=== PATIENT | female | born 1955 | race Caucasian/White ===

== ENCOUNTER → 2016-10-03 | Outpatient (CLI) | payer OTHER ==
[~2016-10-03] MED LIST: BUPR15TA OR; CALCCHW12 OR; CRANCAP4 PO; DEXALANT PO; FISH1000 OR; KRIL300C2 PO; MULTIVIT PO; VITA-121 PO
--- NOTE | 2016-10-03 15:40 | REPMRS ---
Patient History The patient states she had a clinical breast exam in 09/2016. Patient is postmenopausal and had first child at age 34. Family history of breast cancer in mother at age 64. Took unspecified hormones for 5 years. Digital Woman Screen Mammo: October 03, 2016 - Exam #: [id number] Bilateral CC and MLO view(s) were taken. Technologist: Gabbie Argueta, Technologist Prior study comparison: August 17, 2014, digital woman screen mammo performed at [facility]. May 24, 2013, bilateral bilat screen digital mammo, performed at [facility] ([facility] FINDINGS: The breast tissue is heterogeneously dense. This may lower the sensitivity of mammography. There has been no change in the appearance of the mammogram from the prior studies. There is a moderate amount of residual fibroglandular tissue which is fairly symmetric. There is no interval development of dominant mass, architectural distortion, or clustered microcalcification typical of malignancy. There are scattered, small, benign calcifications of doubtful clinical significance. No significant changes when compared with prior studies. ASSESSMENT: BI-RADS/ACR category 2 mammogram. Benign finding(s). Recommendation Routine screening mammogram in 1 year (for women over age 40). This mammogram was interpreted with the aid of an FDA-approved computer-aided dectection system. A. Negative x-ray reports should not delay biopsy if a dominant or clinically suspicious mass is present. B. Four to eight percent of cancers are not identified by mammography. C. Adenosis and dense breast may obscure an underlying neoplasm. Electronically Signed By: Popeye yLles MD 10/03/16 [id number]
== END ==
LOC: M WHC 13:13
PROVIDERS: ATTEND Nurse Practitioner Family
DX: Z12.31 Encounter for screening mammogram for malignant neoplasm of breast (principal)

== ENCOUNTER → 2016-10-03 | Outpatient (REF) | payer OTHER | LOC: M SFHCWAGY 14:21 | PROVIDERS: ATTEND Nurse Practitioner Family | DX: Z12.4 Encounter for screening for malignant neoplasm of cervix (principal) ==

== ENCOUNTER → 2017-09-26 | Outpatient (REF) | payer OTHER | LOC: M LAB REF 15:16 | DX: J11.1 Influenza due to unidentified influenza virus with other respiratory manifestations (principal) ==

== ENCOUNTER → 2017-10-13 | Outpatient (CLI) | payer OTHER | LOC: M WHC 13:48 | DX: Z12.31 Encounter for screening mammogram for malignant neoplasm of breast (principal); Z78.0 Asymptomatic menopausal state | CPT/HCPCS: 77067 ==

== ENCOUNTER → 2017-10-16 | Outpatient (CLI) | payer OTHER | LOC: M WHC 11:13 | DX: M81.0 Age-related osteoporosis without current pathological fracture (principal) ==

== ENCOUNTER → 2018-03-26 | Outpatient (REF) | payer OTHER | LOC: M LAB REF 13:45 | DX: R19.7 Diarrhea, unspecified (principal) | CPT/HCPCS: 87507 ==

== ENCOUNTER 2018-05-02 12:49 | Emergency (ER) | payer OTHER ==
[2018-05-02] MEDS: ONDANSETRON 4MG/2ML VIAL (J2405) IV (14:11)
[2018-05-02] MEDS: MORPHINE 2 MG/ML 1ML SYRINGE (J2270) IV (14:12)
[2018-05-02 14:49] LABS: BASO % 0.5 % (0.0-1.0); EOS # 0.1 10^3/uL (0.0-0.50); EOS % 0.6 % (0.0-3.0); HEMATOCRIT 37.4 % (36.0-47.0); HEMOGLOBIN 12.5 g/dl (12.0-15.5); IMMATURE GRANULOCYTE % 0.4 % (0-3.0); LYMPH # 0.8 10^3/uL (1.5-4.5); LYMPH % 9.9 % (24.0-44.0); MEAN CORPUSCULAR HEMOGLOBIN 30.7 pg (27.0-33.0); MEAN CORPUSCULAR HGB CONC 33.4 g/dl (32.0-36.5); MEAN CORPUSCULAR VOLUME 91.9 fl (80.0-96.0); MONO # 0.4 10^3/uL (0.0-0.8); MONO % 5.1 % (0.0-5.0); NEUTROPHILS % 83.5 % (36.0-66.0); PLATELET COUNT, AUTOMATED 264 10^3/uL (150-450); RED BLOOD COUNT 4.07 10^6/uL (4.00-5.40); RED CELL DISTRIBUTION WIDTH 12.1 % (11.5-14.5); WHITE BLOOD COUNT 8.3 10^3/uL (4.0-10.0)
[2018-05-02 15:23] LABS: ANION GAP 8 MEQ/L (8-16); BLOOD UREA NITROGEN 14 MG/DL (7-18); CARBON DIOXIDE LEVEL 26 MEQ/L (21-32); CHLORIDE LEVEL 109 MEQ/L (98-107); CREATININE FOR GFR 0.69 MG/DL (0.55-1.30); GLOMERULAR FILTRATION RATE > 60.0 (>45); GLUCOSE, FASTING 93 MG/DL (70-100); POTASSIUM SERUM 3.8 MEQ/L (3.5-5.1); SODIUM LEVEL 143 MEQ/L (136-145)
== END 2018-05-02 17:41 | disposition short-term general hospital (02) ==
LOC: M ED 12:49
DX: S32.402A Unspecified fracture of left acetabulum, initial encounter for closed fracture (principal); W07.XXXA Fall from chair, initial encounter; Y92.018 Other place in single-family (private) house as the place of occurrence of the external cause; K21.9 Gastro-esophageal reflux disease without esophagitis; F41.9 Anxiety disorder, unspecified; Z79.899 Other long term (current) drug therapy; Z87.891 Personal history of nicotine dependence
CPT/HCPCS: J2405

== ENCOUNTER → 2019-01-15 | Outpatient (REF) | payer OTHER ==
[~2019-01-15] MED LIST changes: +CIPR-249 PO; +FLAG500T PO; +LEXA1TAB2 PO
[2019-01-20 14:09] LABS: HPV HYBRID CAPTURE II Negative (Negative)
== END ==
LOC: M SFHCWAGY 12:54
PROVIDERS: ATTEND Nurse Practitioner Family
DX: Z12.4 Encounter for screening for malignant neoplasm of cervix (principal)

== ENCOUNTER → 2019-01-15 | Outpatient (CLI) | payer OTHER ==
--- NOTE | 2019-01-15 12:17 | REPMRS ---
Patient History The patient states she had a clinical breast exam in 01/2019. Family history of breast cancer at age 64 in mother. Took unspecified hormones for 5 years. 3D TOMOSYNTHESIS WAS PERFORMED. Digital Woman Screen Mammo: January 15, 2019 - Exam #: [id number] Bilateral CC and MLO view(s) were taken. Technologist: Mary Begum, Technologist Prior study comparison: October 13, 2017, digital woman screen mammo performed at [facility]. October 03, 2016, digital woman screen mammo performed at [facility]. FINDINGS: The breast tissue is heterogeneously dense. This may lower the sensitivity of mammography. There has been no change in the appearance of the mammogram from the prior studies. There is a moderate amount of residual fibroglandular tissue which is fairly symmetric. There is no interval development of dominant mass, areas of architectural distortion, or clustered microcalcification typical of malignancy. Assessment: BI-RADS/ACR category 1 mammogram. Negative Mammogram. Recommendation Routine screening mammogram in 1 year (for women over age 40). This mammogram was interpreted with the aid of an FDA-approved computer-aided dectection system. Electronically Signed By: David Alexander MD 01/15/19 [id number]
== END ==
LOC: M WHC 11:09
PROVIDERS: ATTEND Nurse Practitioner Family
DX: Z12.31 Encounter for screening mammogram for malignant neoplasm of breast (principal)

== ENCOUNTER 2019-04-09 09:45 | Day surgery (SDC) | payer OTHER ==
[~2019-04-09] VITALS: Ht 160 cm; Wt 43.5 kg
[~2019-04-09 09:45] MED LIST changes: +CALC600C3 PO; +CARA1TAB6 PO; +CRAN450T4 PO; +D 50CAP2 PO; +DEXI60CA2 PO; +WELLTAB38 PO
[2019-04-09] MEDS ORDERED: NS 1,000 ML IV ONE (10:30)
[2019-04-09] MEDS ORDERED: LIDOCAINE 2% INJ 100 MG/5 ML SDV (FOR ANES.) As Ordered ONE (12:11)
[2019-04-09] MEDS ORDERED: PROPOFOL 200 MG/20 ML VIAL As Ordered ONE ×2 (12:11→12:12)
--- NOTE | 2019-04-09 12:15 | ROOR ---
Patient Name: Hetal Prince Procedure Date: 04/09/2019 12:05 PM Date of : 1955 Age: 63 Room: [facility] Gender: Female Note Status: Finalized Procedure: Upper GI endoscopy Indications: Dyspepsia Providers: Meir CUEVA MD Referring MD: KHURRAM REILLY NP Requesting Provider: Medicines: Monitored Anesthesia Care Complications: No immediate complications. Procedure: Pre-Anesthesia Assessment: - The heart rate, respiratory rate, oxygen saturations, blood pressure, adequacy of pulmonary ventilation, and response to care were monitored throughout the procedure. The Endoscope was introduced through the mouth, and advanced to the second part of duodenum. The upper GI endoscopy was accomplished without difficulty. The patient tolerated the procedure well. Findings: The esophagus was normal. The stomach was normal. The examined duodenum was normal. Impression: - Normal esophagus. - Normal stomach. - Normal examined duodenum. - No specimens collected. Recommendation: - Continue present medications. Meir Cueva MD Meir CUEVA MD 04/09/2019 12:15:23 PM Electronically signed by Meir CUEVA MD Number of Addenda: 0 Note Initiated On: 04/09/2019 12:05 PM Estimated Blood Loss: Estimated blood loss: none.
--- NOTE | 2019-04-09 12:28 | ROOR ---
Patient Name: Hetal Prince Procedure Date: 04/09/2019 12:05 PM Date of : 1955 Age: 63 Room: [facility] Gender: Female Note Status: Finalized Procedure: Colonoscopy Indications: Screening for colorectal malignant neoplasm Providers: Meir CUEVA MD Referring MD: KHURRAM REILLY NP Requesting Provider: Medicines: Monitored Anesthesia Care Complications: No immediate complications. Procedure: Pre-Anesthesia Assessment: - The heart rate, respiratory rate, oxygen saturations, blood pressure, adequacy of pulmonary ventilation, and response to care were monitored throughout the procedure. The Colonoscope was introduced through the anus and advanced to the cecum, identified by appendiceal orifice and ileocecal valve. The colonoscopy was performed without difficulty. The patient tolerated the procedure well. The quality of the bowel preparation was good. Findings: The perianal and digital rectal examinations were normal. Small Internal Hemorrhoids. The exam was otherwise without abnormality on direct and retroflexion views. Impression: - Small Internal Hemorrhoids. - The examination was otherwise normal on direct and retroflexion views. - No specimens collected. Recommendation: - Repeat colonoscopy in 10 years for screening purposes. Meir Cueva MD Meir CUEVA MD 04/09/2019 12:28:13 PM Electronically signed by Meir CUEVA MD Number of Addenda: 0 Note Initiated On: 04/09/2019 12:05 PM Estimated Blood Loss: Estimated blood loss: none.
[2019-04-09 13:10] VITALS: BP 119/57
== END 2019-04-09 13:12 | disposition home or self-care (01) ==
LOC: M OPP 09:45
PROVIDERS: ATTEND Internal Medicine Gastroenterology
DX: Z12.11 Encounter for screening for malignant neoplasm of colon (principal); R10.13 Epigastric pain; K64.8 Other hemorrhoids; E78.00 Pure hypercholesterolemia, unspecified; K21.9 Gastro-esophageal reflux disease without esophagitis; F32.9 Major depressive disorder, single episode, unspecified; M81.0 Age-related osteoporosis without current pathological fracture; Z88.1 Allergy status to other antibiotic agents; Z88.8 Allergy status to other drugs, medicaments and biological substances; Z79.899 Other long term (current) drug therapy

== ENCOUNTER → 2019-05-18 | Outpatient (CLI) | payer OTHER ==
[2019-05-18 10:11] LABS: BASO # 0.1 10^3/uL (0.0-0.2); BASO % 1.3 % (0.0-1.0); EOS # 0.1 10^3/uL (0.0-0.5); EOS % 2.9 % (0.0-3.0); HEMOGLOBIN 13.6 g/dl (12.0-15.5); LYMPH # 1.4 10^3/uL (1.5-5.0); LYMPH % 30.8 % (24.0-44.0); MEAN CORPUSCULAR HGB CONC 32.4 g/dl (32.0-36.5); MEAN CORPUSCULAR VOLUME 95.7 fl (80.0-96.0); MONO # 0.6 10^3/uL (0.0-0.8); MONO % 12.4 % (0.0-5.0); NEUTROPHILS # 2.3 10^3/uL (1.5-8.5); NEUTROPHILS % 52.4 % (36.0-66.0); PLATELET COUNT, AUTOMATED 280 10^3/uL (150-450); RED BLOOD COUNT 4.39 10^6/uL (4.00-5.40); WHITE BLOOD COUNT 4.5 10^3/uL (4.0-10.0)
== END ==
LOC: M LAB 09:32
PROVIDERS: ATTEND Physician Assistant Medical
DX: K62.5 Hemorrhage of anus and rectum (principal)

== ENCOUNTER → 2019-06-04 | Outpatient (CLI) | payer OTHER ==
[~2019-06-04] MED LIST changes: +E-Z-PAQUE 96% w/w SUSP 176GM BTL As Ordered ONE
--- NOTE | 2019-06-05 17:51 | REP ---
Examination Requested: SBFT Reason For Exam: hemorrhage of anus and rectum Small Bowel Follow Through The procedure was performed by TICO Cardozo, under the direct supervision of Dr. Alexander. The images were reviewed with Dr. Alexander. The terminal operator film shows no organomegaly or pathological masses. The intestinal gas pattern appears normal. The barium was administered and the barium column was followed through the small bowel to the level of the terminal ileum. Small bowel transit time was approximately 80 minutes. During fluoroscopy gentle palpation shows all loops are freely mobile and pliable. There are no fixed or angulated loops. The small bowel mucosal pattern is normal in course and caliber. There is no transition to suggest a partial small-bowel obstruction. Spot filming of the terminal ileum shows it to be unremarkable. Impression: 1. Unremarkable small bowel follow-through 0.6 minutes of fluoroscopy time was utilized for this procedure. Some fluoroscopic images are performed with last image hold technology. These images require no additional radiation. Reviewed by TICO Darby 06/04/2019 04:21 P Electronically Signed by David Alexander MD 06/05/2019 05:41 P
== END ==
LOC: M RAD 07:19
PROVIDERS: ATTEND Physician Assistant Medical
DX: K62.5 Hemorrhage of anus and rectum (principal); R19.8 Other specified symptoms and signs involving the digestive system and abdomen; R63.4 Abnormal weight loss

== ENCOUNTER → 2020-01-18 | Outpatient (CLI) | payer OTHER ==
[~2020-01-18] MED LIST changes: -E-Z-PAQUE 96% w/w SUSP 176GM BTL As Ordered ONE
--- NOTE | 2020-01-18 12:34 | REPMRS ---
Patient History The patient states she had a clinical breast exam in January 2020. Family history of breast cancer at age 64 in mother. Took unspecified hormones for 5 years. 3D TOMOSYNTHESIS WAS PERFORMED. The Nilsa Monson lifetime risk for breast cancer is 16.7%. TRISHA Mancia Digital Woman Screen Mammo: January 18, 2020 - Exam #: [id number] Bilateral CC and MLO view(s) were taken. Technologist: Nora Stover, Technologist Prior study comparison: January 15, 2019, bilateral digital woman screen mammo performed at [facility]. October 13, 2017, digital woman screen mammo performed at [facility]. FINDINGS: The breast tissue is heterogeneously dense. This may lower the sensitivity of mammography. There has been no change in the appearance of the mammogram from the prior studies. There is a moderate amount of residual fibroglandular tissue which is fairly symmetric. There is no interval development of dominant mass, areas of architectural distortion, or clustered microcalcification typical of malignancy. Assessment: BI-RADS/ACR category 1 mammogram. Negative Mammogram. Recommendation Routine screening mammogram in 1 year (for women over age 40). This mammogram was interpreted with the aid of an FDA-approved computer-aided dectection system. Electronically Signed By: David Alexander MD 01/18/20 [id number]
--- NOTE | 2020-01-26 15:17 | DEXA ---
AP SPINE L1 - L4 0.829 -3.0 -1.6 LT FEMUR TOTAL 0.752 -2.0 -1.0 LT NECK 0.759 -2.0 -0.7 RT FEMUR TOTAL 0.744 -2.1 -1.0 RT NECK 0.739 -2.2 -0.8 TOTAL BODY TOTAL OTHER COMMENTS: There is low bone density of the hips. There is osteoporosis of the spine. The increased density of the spine does represent a significant change. The increased density of the left hip does represent a significant change. The increased density of the right hip does represent a significant change. The density of the spine has increased 22.6% since the initial exam on 02/23/2010. The increased 7.2% since the most recent exam on 10/16/2017. The density of the left hip has increased 12.1% since the initial exam on 02/23/2010. The density of the left hip has increased 5.8% since the most recent exam on 10/16/2017. The density of the right hip has increased 5.4% since the initial exam on 02/23/2010. The density of the right hip has increased 3.6% since most recent exam on 10/16/2017. FOLLOW-UP: Recommendation for the next bone density exam: 2 years. DEDE
== END ==
LOC: M WHC 11:09
PROVIDERS: ATTEND Nurse Practitioner Family
DX: Z12.31 Encounter for screening mammogram for malignant neoplasm of breast (principal); M81.0 Age-related osteoporosis without current pathological fracture; Z80.3 Family history of malignant neoplasm of breast; M85.851 Other specified disorders of bone density and structure, right thigh; M85.852 Other specified disorders of bone density and structure, left thigh

== ENCOUNTER → 2021-03-19 | Outpatient (CLI) | payer OTHER ==
[~2021-03-19] MED LIST changes: +ACET1TAB55 PO; +AZIT-12 PO; +D-50TAB PO; +FEXO-5 PO; +FLUTISP NARES; +VITA250T4 PO; +VITMTA PO; +ZINC220CA PO; +ZOFR4TAB16 PO
[2021-03-19 13:16] LABS: HEMATOCRIT 39.4 % (36.0-47.0); HEMOGLOBIN 12.6 g/dl (12.0-15.5); MEAN CORPUSCULAR HEMOGLOBIN 31.1 pg (27.0-33.0); MEAN CORPUSCULAR VOLUME 97.3 fl (80.0-96.0); PLATELET COUNT, AUTOMATED 252 10^3/uL (150-450); RED BLOOD COUNT 4.05 10^6/uL (4.00-5.40)
[2021-03-19 13:28] LABS: HEMOGLOBIN A1c 5.4 %
[2021-03-19 13:58] LABS: ALT/SGPT 31 U/L (12-78); BILIRUBIN,TOTAL 0.3 MG/DL (0.2-1.0); BLOOD UREA NITROGEN 16 MG/DL (7-18); CALCIUM LEVEL 9.2 MG/DL (8.8-10.2); CARBON DIOXIDE LEVEL 30 MEQ/L (21-32); CHLORIDE LEVEL 107 MEQ/L (98-107); CHOLESTEROL LEVEL 239 MG/DL (<200); CHOLESTEROL RISK RATIO 3.621 (<5); CREATININE FOR GFR 0.72 MG/DL (0.55-1.30); GLOMERULAR FILTRATION RATE > 60.0 (>45); GLUCOSE, FASTING 86 MG/DL (70-100); HDL CHOLESTEROL 66 MG/DL (>40); LDL CHOLESTEROL 145 MG/DL (<100); NON-HDL-C 173 MG/DL; POTASSIUM SERUM 4.5 MEQ/L (3.5-5.1); SODIUM LEVEL 141 MEQ/L (136-145); TOTAL 25(OH) VITAMIN D 68.4 NG/ML (30.0-100.0); TOTAL PROTEIN 6.7 GM/DL (6.4-8.2); TRIGLYCERIDES LEVEL 140 MG/DL (<150)
== END ==
LOC: M WUC 08:17
PROVIDERS: ATTEND Nurse Practitioner Adult Health
DX: E55.9 Vitamin D deficiency, unspecified (principal); Z76.89 Persons encountering health services in other specified circumstances; Z13.220 Encounter for screening for lipoid disorders; Z13.29 Encounter for screening for other suspected endocrine disorder; Z83.3 Family history of diabetes mellitus

== ENCOUNTER → 2021-05-02 | Outpatient (REF) | payer OTHER ==
[~2021-05-02] MED LIST changes: -ACET1TAB55 PO; -AZIT-12 PO; -D-50TAB PO; -FEXO-5 PO; -FLUTISP NARES; -VITA250T4 PO; -VITMTA PO; -ZINC220CA PO; -ZOFR4TAB16 PO
== END ==
LOC: M SFHCWAGY 19:04
PROVIDERS: ATTEND Nurse Practitioner Women's Health
DX: Z12.4 Encounter for screening for malignant neoplasm of cervix (principal)

== ENCOUNTER → 2021-05-02 | Outpatient (CLI) | payer OTHER ==
--- NOTE | 2021-05-02 13:17 | REPMRS ---
Patient History The patient states she had a clinical breast exam in April 2021. Family history of breast cancer at age 64 in mother. Took unspecified hormones for 5 years. Patient states no breast complaints today. Patient has signed MRS History Sheet. Digital Woman Screen Mammo: May 02, 2021 - Exam #: [id number] Bilateral CC and MLO view(s) were taken. Technologist: Nora Stover, Technologist Prior study comparison: January 18, 2020, bilateral digital woman screen mammo performed at [facility]. January 15, 2019, bilateral digital woman screen mammo performed at [facility]. FINDINGS: The breast tissue is heterogeneously dense. This may lower the sensitivity of mammography. Screening. Digital screening (2D) mammography was performed bilaterally in the CC and MLO projections. Additionally, breast tomosynthesis (3D mammography) was performed bilaterally in the CC and MLO projections. Todays exam was compared to the prior exam/exams. By history, the patient has no complaints of a palpable breast abnormality or other significant breast complaints. The breasts are unchanged in size and shape. There are no slade-soft tissue densities or spiculated masses. There is no internal architectural distortion. There are no suspicious slade-calcific clusters. Skin thickening or nipple retraction is not present. The Volpara volumetric breast density category is C, the breasts are heterogenously dense which may obscure small masses. IMPRESSION: BI-RADS Category 2- Benign Findings. There is no evidence of malignant alteration of the breasts. Followup examination recommended in one year. This mammogram was read with the assistance of [facility],an FDA approved computer aided detection system for mammography. The lifetime Tyrer-Cuzick score is 16.1% Negative x-ray reports should not delay surgical consultation if a dominant or clinically suspicious mass is present. Not all breast cancers can be identified by mammography. Therefore, we recommend that you continue to perform regular breast self-examination and physical examination and then promptly contact your physician of any concerns or changes. Due to the density of the breasts, MRI/whole breast screening ultrasound is warranted. Adenosis and dense breasts may obscure an underlying neoplasm. No significant changes when compared with prior studies. Assessment: BI-RADS/ACR category 2 mammogram. Benign Findings. Recommendation Routine screening mammogram of both breasts in 1 year. Electronically Signed By: Semaj Mckeon MD 05/02/21 [id number]
== END ==
LOC: M WHC 11:52
PROVIDERS: ATTEND Nurse Practitioner Women's Health
DX: Z12.31 Encounter for screening mammogram for malignant neoplasm of breast (principal); Z80.3 Family history of malignant neoplasm of breast

== ENCOUNTER 2021-05-25 10:54 | Observation (INO) | payer OTHER ==
[~2021-05-25] VITALS: Ht 160 cm; Wt 40.0 kg
--- OUTSIDE RECORDS SUMMARY | 2021-05-25 11:03 | CCD ---
Author Author [facility] Organization [facility] Address Unknown Phone Unavailable Care Team Providers Care Materials Planner/Production Planner Name Role Phone Helen Hensley MD Unavailable Unavailable Helen Hensley MD Unavailable Unavailable Helen Hensley MD Unavailable Unavailable Helen Hensley MD Unavailable Unavailable Helen Hensley MD Unavailable Unavailable Helen Hensley MD Unavailable Unavailable Helen Hensley MD Unavailable Unavailable Helen Hensley MD Unavailable Unavailable Helen Hensley MD Unavailable Unavailable Helen Hensley MD Unavailable Unavailable Helen Hensley MD Unavailable Unavailable Helen Hensley MD Unavailable Unavailable Helen Hensley MD Unavailable Unavailable Helen Hensley MD Unavailable Unavailable Helen Hensley MD Unavailable Unavailable Helen Hensley MD Unavailable Unavailable Helen Hensley MD Unavailable Unavailable Helen Hensley MD Unavailable Unavailable Helen Hensley MD Unavailable Unavailable Helen Hensley MD Unavailable Unavailable Helen Hensley MD Unavailable Unavailable Helen Hensley MD Unavailable Unavailable Helen Hensley MD Unavailable Unavailable Helen Hensley MD Unavailable Unavailable Helen Hensley MD Unavailable Unavailable KELLY, J Harriett ANP Unavailable Unavailable KELLY, J Harriett ANP Unavailable Unavailable KELLY, J Harriett ANP Unavailable Unavailable KELLY, J Harriett ANP Unavailable Unavailable KELLY, J Harriett ANP Unavailable Unavailable KELLY, J Harriett ANP Unavailable Unavailable KELLY, J Harriett ANP Unavailable Unavailable KELLY, J Harriett ANP Unavailable Unavailable KELLY, J Harriett ANP Unavailable Unavailable KELLY, J Harriett ANP Unavailable Unavailable KELLY, J Harriett ANP Unavailable Unavailable KELLY, J Harriett ANP Unavailable Unavailable KELLY, J Harritet ANP Unavailable Unavailable KELLY, J Harriett ANP Unavailable Unavailable KELLY, J Harriett ANP Unavailable Unavailable KELLY, J Harriett ANP Unavailable Unavailable KELLY, J Harriett ANP Unavailable Unavailable KELLY, J Harriett ANP Unavailable Unavailable KELLY, J Harriett ANP Unavailable Unavailable KELLY, J Harriett ANP Unavailable Unavailable KELLY, J Harriett ANP Unavailable Unavailable KELLY, J Harriett ANP Unavailable Unavailable KELLY, J Harriett ANP Unavailable Unavailable KELLY, J Harriett ANP Unavailable Unavailable KELLY, J Harriett ANP Unavailable Unavailable KELLY, J Harriett ANP Unavailable Unavailable KELLY, J Harriett ANP Unavailable Unavailable KELLY, J Harriett ANP Unavailable Unavailable KELLY, J Harriett ANP Unavailable Unavailable KELLY, J Harriett ANP Unavailable Unavailable KELLY, J Harriett ANP Unavailable Unavailable KELLY, J Harriett ANP Unavailable Unavailable KELLY, J Harriett ANP Unavailable Unavailable KELLY, J Harriett ANP Unavailable Unavailable KELLY, J Harriett ANP Unavailable Unavailable KELLY, J Harriett ANP Unavailable Unavailable KELLY, J Harriett ANP Unavailable Unavailable KELLY, J Harriett ANP Unavailable Unavailable KELLY, J Hrariett ANP Unavailable Unavailable KELLY, J Harriett ANP Unavailable Unavailable KELLY, J Harriett ANP Unavailable Unavailable KELLY, J Harriett ANP Unavailable Unavailable KELYL, J Harriett ANP Unavailable Unavailable KELLY, J Harriett ANP Unavailable Unavailable KELLY, J Harriett ANP Unavailable Unavailable KELLY, J Harriett ANP Unavailable Unavailable KELLY, J Harriett ANP Unavailable Unavailable KELLY, J Harriett ANP Unavailable Unavailable KELLY, J Harriett ANP Unavailable Unavailable KELLY, J Harriett ANP Unavailable Unavailable KELLY, J Harriett ANP Unavailable Unavailable KELLY, J Harriett ANP Unavailable Unavailable KELLY, J Harriett ANP Unavailable Unavailable KELLY, J Harriett ANP Unavailable Unavailable KELLY, J Harriett ANP Unavailable Unavailable KELLY, J Harriett ANP Unavailable Unavailable KELLY, J Harriett ANP Unavailable Unavailable KELLY, J Harriett ANP Unavailable Unavailable KELLY, J Harriett ANP Unavailable Unavailable KELLY, J Harriett ANP Unavailable Unavailable KELLY, J Harriett ANP Unavailable Unavailable KELLY, J Harriett ANP Unavailable Unavailable KELLY, J Harriett ANP Unavailable Unavailable KELLY, J Harriett ANP Unavailable Unavailable Re-disclosure Warning The records that you are about to access may contain information from federally-assisted alcohol or drug abuse programs. If such information is present, then the following federally mandated warning applies: This information has been disclosed to you from records protected by federal confidentiality rules (42 CFR part 2). The federal rules prohibit you from making any further disclosure of this information unless further disclosure is expressly permitted by the written consent of the person to whom it pertains or as otherwise permitted by 42 CFR part 2. A general authorization for the release of medical or other information is NOT sufficient for this purpose. The Federal rules restrict any use of the information to criminally investigate or prosecute any alcohol or drug abuse patient.The records that you are about to access may contain highly sensitive health information, the redisclosure of which is protected by Article 27-F of the [facility] Public Health law. If you continue you may have access to information: Regarding HIV / AIDS; Provided by facilities licensed or operated by the [facility] Office of Mental Health; or Provided by the [facility] Office for People With Developmental Disabilities. If such information is present, then the following [facility] mandated warning applies: This information has been disclosed to you from confidential records which are protected by state law. State law prohibits you from making any further disclosure of this information without the specific written consent of the person to whom it pertains, or as otherwise permitted by law. Any unauthorized further disclosure in violation of state law may result in a fine or detention sentence or both. A general authorization for the release of medical or other information is NOT sufficient authorization for further disc losure. Family History Family Member Name Family Member Gender Family Member Status Date o f Status Description Data Source(s) Unknown Unknown Problem [facility] ([facility]) Unknown Unknown Problem [facility] ([facility]) Encounters Encounter Providers Location Date Indications Data Source(s ) Unknown [address] [facility] [place] [address] 05/24/2021 12:00:00 AM EDT eCW1 ([facility]) Unknown [address] [facility] [place] [address] 05/22/2021 12:00:00 AM EDT eCW1 ([facility]) Outpatient Attender: Rody Paulino 10:21:04 AM EDT - 05/21/2021 01:02:12 PM EDT [facility] ([facility]) Outpatient [address] [facility] [place] [address] 05/02/2021 12:00:00 AM EDT eCW1 ([facility]) Outpatient [address] [facility] [place] [address] 02/22/2021 12:00:00 AM EDT eCW1 ([facility]) Outpatient Attender: Harriett Borrego 04/2020 10:15:00 AM EST MED[facility] ([facility] ) Medications Medication Brand Name Start Date Product Form Dose Route Admi nistrative Instructions Pharmacy Instructions Status Indications Reaction Description Data Source(s) Azithromycin 250 MG Oral Tablet [Zithromax] Zithromax 250 MG Zithromax 250 MG 05/22/2021 12:00:00 AM EDT active Zithromax 250 MG eCW1 ([facility]) Azithromycin 250 MG Oral Tablet [Zithromax] Zithromax 250 MG Zithromax 250 MG 05/22/2021 12:00:00 AM EDT active Zithromax 250 MG eCW1 ([facility]) Insurance Providers Payer name Policy type / Coverage type Policy ID Covered green party ID Covered green party's relationship to arguelles Policy Arguelles Plan Information [employer] CLAIM ADMIN WORK COMP [id number] SP [id number] [employer] CLAIM ADMIN WORK COMP [id number] [id number] [id number] [employer] [id number] [facility] [id number] [employer] [id number] [facility] [id number] [facility] [id number] [facility] [id number] [facility] [id number] SP [id number] [employer] Ppo Commercial [id number] Family Dependent [id number] [employer]/Umr (Old) Medigap Part B [id number] Family Dependent [id number] [employer] (Old) Medigap Part B [id number] Family Dependent [id number] Umr [employer] P[employer] Commercial [id number] Family Dependent [id number] Umr [employer] P[employer] Commercial [id number] Family Dependent [id number] [employer] (Old) Medigap Part B [id number] Family Dependent [id number] [employer] Ppo Commercial [id number] Family Dependent [employer] (Old) Medigap Part B [id number] Family Dependent [id number] [employer] (Old) Medigap Part B [id number] [id number] Family Dependent [id number] [employer] P[employer] Commercial [id number] Family Dependent [id number] [employer] P[employer] Commercial [id number] Family Dependent [id number] [employer] Workers Compensation [id number] Self [employer] Workers Compensation [id number] Self [id number] UMR U [id number] Spouse [id number] r Care Management [id number] 1 [id number] Umr ([employer]) Commercial [id number] Family Dependent [id number] [facility] [employer] [id number] Self [id number] ANSI-Commercial [id number] [employer] [id number] HU2 [id number] ANSI-Commercial [id number] UMR [facility] [id number] HU2 [id number] [employer] CLAIM ADMIN WORK O [id number] S [id number] UMR [facility] [id number] HU2 [id number] Umr Commercial [id number] Family Dependent [id number] ANSI-Commercial [id number] [employer] Medigap Part B [id number] Self [employer] Medigap Part B [id number] Self [id number] [facility] O [id number] S [id number] UMR O [id number] S [id number] UMR [facility] [id number] HU2 [id number] [employer] Commercial [id number] Family Dependent [employer] PPO O [id number] S [id number] [employer]-O/P [id number] 01 [id number] R [facility] HU2 c [id number] [employer] [id number] 2 [id number] ANSI-Commercial [id number] [employer] PPO O [id number] P [id number] Problems, Conditions, and Diagnoses Code Display Name Description Problem Type Effective Dates Data Source(s) M81.0 [id number] Age-related osteoporosis without current pathological fracture Problem 05/02/2021 12:00:00 AM EDT eC ([facility]) F32.9 [id number] Depression, unspecified depression type P roblem 02/22/2021 12:00:00 AM EDT eC ([facility]) F41.9 [id number] Anxiety disorder, unspecified Problem 02/22/2021 12:00:00 AM EDT eCW1 ([facility]) E55.9 [id number] Vitamin D deficiency Problem 02/22/2021 12:0 0:00 AM EDT eC ([facility]) Surgeries/Procedures No Information Results ID Date Data Source [facility] DIGITAL / CEASAR BILATERAL MAMMO SCREENING (Ultraso und if indicated) 05/02/2021 12:00:00 AM EDT eC ([facility]) Name Value Range Interpretation Code Description Data Lauren rce(s) Supporting Document(s) BC DIGITAL / CEASAR BILAT ERAL MAMMO SCREENING (Ultrasound if indicated) eC ([facility]) ID Date Data Source [id number] 06/16/2020 08:08:00 AM EST MEDENT ([facility]) Name Value Range Interpretation Code Description Data Lauren rce(s) Supporting Document(s) Cholesterol [Mass/volume] in Serum or Plasma 243 mg/dL 131-200 [facility] ([facility]) Cholesterol in HDL [Mass/volume] in Serum or Plasma 75 mg/dL 35-60 [facility] ([facility]) Cholesterol in LDL [Mass/volume] in Serum or Plasma by calcu lation 147 CALC 50-159 [facility] ([facility]) Triglyceride [Mass/volume] in Serum or Plasma 107 mg/dL 30-150 [facility] ([facility]) ID Date Data Source [id number] 06/16/2020 08:08:00 AM EST MED[facility] ([facility]) Name Value Range Interpretation Code Description Data Lauren rce(s) Supporting Document(s) Glucose [Mass/volume] in Serum or Plasma 85 mg/dL 74-99 [facility] ([facility]) 100-125 mg/dL PRE-DIABETES/FASTING >126 mg/dL DIABETES/FASTING Urea nitrogen [Mass/volume] in Serum or Plasma 16 mg/dL 7-18 [facility] ([facility]) Creatinine 1.0 mg/dL 0.6-1.3 [facility] Chloride [Moles/volume] in Serum or Plasma 103 meq/L 98-107 [facility] ([facility]) Sodium [Moles/volume] in Serum or Plasma 143 meq/L 136-145 [facility] ([facility]) Carbon dioxide, total [Moles/volume] in Serum or Plasma 33 meq/L 21 -32 [facility] ([facility]) Potassium [Moles/volume] in Serum or Plasma 4.5 meq/L 3.5-5.1 [facility] ([facility]) Total Bilirubin 0.4 mg/dL 0.2-1.0 MED[facility] ([facility]) Alkaline phosphatase isoenzyme [Units/volume] in Serum or Pl asma 39 mg/dL 46-116 [facility] ([facility]) Calcium [Mass/volume] in Serum or Plasma 9.2 mg/dL 8.5-10.1 [facility] ([facility]) Proteinase 3 Ab [Units/volume] in Serum 6.9 g/dL 6.4-8.2 [facility] ([facility]) Alanine aminotransferase [Enzymatic activity/volume] in Seru m or Plasma 23 U/L 12-78 [facility] ([facility]) Aspartate aminotransferase [Enzymatic activity/volume] in Serum or Plasma 26 U/L 15-37 [facility] Albumin [Mass/volume] in Serum or Plasma 4.2 g/dL 3.4-5.0 [facility] ([facility]) A/G Ratio 1.56 CALC 1.00-1.90 [facility]) Glomerular filtration rate/1.73 sq M pre dicted among non-blacks [Volume Rate/Area] in Serum or Plasma by Creatinine-based formula (MDRD) 56 mL/min [facility] Glomerular filtration rate/1.73 sq M pre dicted among blacks [Volume Rate/Area] in Serum or Plasma by Creatinine-based formula (MDRD) Laboratory test result [facility] <content>CHRONIC KIDNEY DISEASE STAGING PER NKF</content>
<content></content>
<content>STAGE I & II GFR >= 60 NORMAL TO MILDLY DECREASED</content>
<content>STAGE III GFR 30-59 MODERATELY DECREASED</content>
<content>STAGE IV GFR 15-29 SEVERELY DECREASED</content>
<content>STAGE V GFR <15 VERY LITTLE GFR LEFT</content>
<content>ESRD GFR <15 ON ELECTRIC [employer]</content>
<content></content> ID Date Data Source [id number] 06/16/2020 08:08:00 AM EST [facility] ([facility]) Name Value Range Interpretation Code Description Data Lauren rce(s) Supporting Document(s) Leukocytes [#/volume] in Blood by Automated count 4.3 x10*3/UL 4.1-10 .9 [facility] ([facility]) Hemoglobin [Mass/volume] in Blood 12.8 g/dL 12.0-18.0 [facility] ([facility]) Hematocrit [Volume Fraction] of Blood by Automated count 38.2 % 3 7.0-51.0 [facility] Erythrocytes [#/volume] in Blood by Automated count 4.17 x10*6/UL 4.2 0-6.30 [facility] ([facility]) MCV 91.4 fL 80.0-97.0 [facility] ([facility]) MCH 30.7 pg 26.0-32.0 [facility] MCHC 33.6 g/dL 31.0-38.0 [facility] Erythrocyte distribution width [Ratio] by Automated count 13.0 % 11.6-13.7 [facility] ([facility]) Platelets [#/volume] in Blood by Automated count 303 x10*3/UL 140-440 [facility] ([facility]) MPV 8.4 FL 7.8-11.0 [facility] Lymph % 32.8 % 10.0-58.5 [facility]) Mid % 8.1 % 1.7-9.3 [facility] Neut # 2.5 x10*3/UL 2.0-7.8 [facility] ([facility]) Lymph # 1.4 x10*3/UL 0.6-4.1 [facility] ([facility]) Mid # 0.4 x10*3/UL 0.1-0.6 [facility] ([facility]) Neut % 59.1 % 37.0-92.0 [facility] Procedure Social History Code Duration Value Status Description Data Source(s ) Smoking 05/24/2021 12:00:00 AM EDT Former Smoker completed Former Smoker eCW1 ([facility]) Smoking 05/02/2021 12:00:00 AM EDT Former Smoker completed Former Smoker eCW1 ([facility]) Smoking 05/02/2021 12:00:00 AM EDT Former Smoker completed Former Smoker eCW1 ([facility]) Smoking 02/25/2021 12:00:00 AM EDT Former Smoker completed Former Smoker eCW1 ([facility]) Vital Signs ID Date Data Source UNK Name Value Range Interpretation Code Description Data Source(s) Body weight 97 [lb_av] 97 [lb_av] eCW1 ([facility]) Body height 63 [in_i] 63 [in_i] eCW1 ([facility]) Body mass index (BMI) [Ratio] 17.18 kg/m2 17.18 kg/m2 eCW1 ([facility]) Systolic blood pressure 104 mm[Hg] 104 mm[Hg] e CW1 ([facility]) Diastolic blood pressure 60 mm[Hg] 60 mm[Hg] eCW1 ([facility]) Body weight 96.4 [lb_av] 96.4 [lb_av] eCW1 ([facility]) Heart rate 80 /min 80 /min eCW1 ([facility]) Body mass index (BMI) [Ratio] 17.07 kg/m2 17.07 kg/m2 eCW1 ([facility]) Body height 63 [in_i] 63 [in_i] eCW1 ([facility]) Systolic blood pressure 118 mm[Hg] 118 mm[Hg] e CW1 ([facility]) Diastolic blood pressure 72 mm[Hg] 72 mm[Hg] eCW1 ([facility]) Respiratory rate 18 /min 18 /min eCW1 ([facility]) Body temperature 98.9 [degF] 98.9 [degF] eCW1 ( [facility]) Body mass index (BMI) [Ratio] 18.3 kg/m2 18.3 k g/m2 MED[facility] ([facility]) Systolic blood pressure 114 mm[Hg] 114 mm[Hg] M EDENT ([facility]) Diastolic blood pressure 70 mm[Hg] 70 mm[Hg] [facility] ([facility]) Heart rate 74 /min 74 /min [facility] ([facility]) Body height 61 [in_i] 61 [in_i] MEDENT ([facility]) 5'1" Body weight 97.00 [lb_av] 97.00 [lb_av] MEDENT ([facility]) Oxygen saturation in Arterial blood by Pulse oximetry 99 % 99 % MED[facility] ([facility]) Patient Treatment Plan of Care Planned Activity Planned Date Details Description Data Source (s) Azithromycin 250 MG Oral Tablet [Zithromax] 05/22/2021 12:00:00 AM EDT eCW1 ([facility]) Azithromycin 250 MG Oral Tablet [Zithromax] 05/22/2021 12:00:00 AM EDT eCW1 ([facility])
--- OUTSIDE RECORDS SUMMARY | 2021-05-25 11:03 | CCD ---
Author Author [facility] Organization [facility] em[facility] Address Unknown Phone Unavailable Care Team Providers Care Community Relations Rep Name Role Phone Sayra Koch Unavailable PROBLEMS Type Condition ICD9-CM Code [id number] Code Onset Dates Condition S tatus W/U Status Risk SNOMED Code Notes Problem Reflux esophagitis K21.0 Active confirmed 2 72314012 Problem Senile osteoporosis M81.0 Active confirmed 30549000 Problem Decreased libido R68.82 Active confirmed 835 7008 Problem Vitamin D deficiency E55.9 Active confirmed 18711917 Problem Anxiety state, unspecified F41.1 Active confirmed 195531844 Problem Age-related osteoporosis without current pathological fracture M81.0 Active confirmed 06518886 Problem Osteoporosis without current pathological fracture, unspecified osteoporosis type M81.0 Active confirmed 02655284 Problem Osteoporosis, unspecified os teoporosis type, unspecified pathological fracture presence M81.0 Active confirmed 35222645 Problem Anxiety disorder, unspecified F41.9 Active confirm ed 758371181 Problem Depression, unspecified depression type F32.9 Active confirmed 05498693 ALLERGIES Allergen (clinical drug ingredient) Drug/Non Drug Allergy do cumented on EMR Reaction Allergy Type Onset Date Status Levaquin unable to sleep Drug Allergy Active ENCOUNTERS from 1957 to 2021-05-22 Encounter Location Date Provider Diagnosis [facility] [address] [facility] [phone] [place] [address] May, Sayra Koch IMMUNIZATIONS Vaccine Route Administration Date Status Prolia 60mg/1mL Denosumab SC Subcutaneous January 18, 2020 Admini stered Prolia 60mg/1mL Denosumab SC Subcutaneous Aug 18, 2019 Admini stered Prolia 60mg/1mL Denosumab SC Subcutaneous January 15, 2019 Admini stered Prolia 60mg/1mL Denosumab SC Subcutaneous Jul 17, 2018 Admini stered SOCIAL HISTORY Tobacco Use: Social History Observation Description Date Details (start date - stop date) Former Smoker Sex Assigned At : Social History Observation Description Sex Assigned At Unknown Education: Question Answer Notes Level of Education: High School Orthodox: Question Answer Notes Orthodox 08 [employer] Sexual Hx: Question Answer Notes Had sex in the last 12 months (vaginal, oral, or anal)? No LMP: post menopausal Have you ever had an STD? No Alcohol Screening: Question Answer Notes Did you have a drink containing alcohol in the past year? No Points 0 Interpretation Negative BMI Care Goal Follow-Up Question Answer Notes Below Normal BMI Follow-Up Lifestyle education regarding t Tobacco Use: Question Answer Notes Are you a: former smoker How long has it been since you last smoked? > 10 years quit 1989 REASON FOR REFERRAL No Information VITAL SIGNS No information MEDICATIONS Medication SIG (Take, Route, Frequency, Duration) Notes Start Da te End Date Status Cranberry Extract 84 mg 1 capsule Orally once a day Active Dexilant 60 mg 1 tab(s) orally once a day Active Prolia 60 MG/ML as directed Subcutaneous every 6 months for 180 days Jan, Not-Taking buPROPion HCl ER (XL) 150 MG 1 tablet in the morning O rally Once a day for 90 days Active Multivitamins - 1 cap Orally once a day Active Zithromax 250 MG 2 tablet on the first day, then 1 tablet daily for 4 days Orally Once a day for 5 day(s) May, A ctive Calcium 1000 + D 1000-800 MG-UNIT 1 tablet with a meal Orally Daily Active Vitamin C 1000 MG 1 tablet Orally Once a day Active ZyrTEC Allergy 10 MG 1 tablet Orally Once a day for 30 day(s) Active Zinc 50 MG 1 tablet Orally Once a day for 30 day(s) Active Vitamin D3 Maximum Strength 5000 UNIT takes 1000 units Orally once da lamar Active PROCEDURES No Information RESULTS No Results REASON FOR VISIT + COVID MEDICAL (GENERAL) HISTORY Type Description Date Medical History Anxiety with depression Medical History acid reflux Medical History anxiety Medical History osteoporosis Medical History hx of anemia Medical History Tyrer rafaelck score 14.14 % Medical History 04/2018 fx pelvis from a fall off a chair Surgical History colonoscopy/endoscopy January 2010 Surgical History tonsillectomy Surgical History D & C Surgical History hysterosalpingogram Surgical History Upper GI endoscopy normal 04/09/2019 Surgical History Colonoscopy 10-year follow-up 04/09/2019 Hospitalization History Left Pelvic fracture 05/02/18 Goals Section No Information Health Concerns No Information MEDICAL EQUIPMENT No Information MENTAL STATUS No Information FUNCTIONAL STATUS No Information ASSESSMENTS No Information PLAN OF TREATMENT Medication Medication Name Sig Start Date Stop Date Zithromax 250 MG 2 tablet on the first day, then 1 tablet daily for 4 days Orally Once a day for 5 day(s) May, Next Appt Details Provider Name:Sayra Park Koch, 10:30:00 AM, [address] [place] [address], , [place], [address], Insurance Providers Payer Name Payer Address Payer Phone Insured Name Patient Relati onship to Insured Coverage Start Date Coverage End Date [facility] [address] [facility] [phone] Asa Duckworth
--- OUTSIDE RECORDS SUMMARY | 2021-05-25 11:03 | CCD ---
Author Author [facility] Organization [facility] Address Unknown Phone Unavailable Care Team Providers Care Drop Hammer Setter Up Name Role Phone Zee, Sayra Unavailable PROBLEMS Type Condition ICD9-CM Code [id number] Code Onset Dates Condition S tatus W/U Status Risk SNOMED Code Notes Problem Anxiety state, unspecified F41.1 Active confirmed 282120877 Problem Reflux esophagitis K21.0 Active confirmed 2 35708028 Problem Senile osteoporosis M81.0 Active confirmed 75327232 Problem Vitamin D deficiency E55.9 Active confirmed 24629208 Problem Anxiety disorder, unspecified F41.9 Active confirm ed 165156402 Problem Decreased libido R68.82 Active confirmed 835 7008 Problem Osteoporosis without current pathological fracture, unspecified osteoporosis type M81.0 Active confirmed 37255818 Problem Osteoporosis, unspecified os teoporosis type, unspecified pathological fracture presence M81.0 Active confirmed 38986455 Problem Depression, unspecified depression type F32.9 Active confirmed 73018615 ALLERGIES Allergen (clinical drug ingredient) Drug/Non Drug Allergy do cumented on EMR Reaction Allergy Type Onset Date Status Levaquin unable to sleep Drug Allergy Active ENCOUNTERS from 1957 to 2021-02-26 Encounter Location Date Provider Diagnosis [address] [phone] [place] [address] Feb, Sayra Koch Anxiety disorder, unspecifie d F41.9 ; Encounter to establish care Z76.89 ; Depression, unspecified depression type F32.9 ; Vitamin D deficiency E55.9 ; Osteoporosis without current pathological fracture, unspecified osteoporosis type M81.0 ; Screening for thyroid disorder Z13.29 ; Screening, lipid Z13.220 ; BMI less than 19,adult Z68.1 and Family history of diabetes mellitus (DM) Z83.3 IMMUNIZATIONS Vaccine Route Administration Date Status Prolia [...] Answer Notes Level of Education: High School Latter Day: Question Answer Notes L[employer] Day 08 [employer] Sexual Hx: Question Answer Notes Had sex [...] since you last smoked? > 10 years 1989 REASON FOR REFERRAL No Information VITAL SIGNS Weight 96.4 lbs Feb, Height 63 in Feb, BMI 17.07 kg/m2 Feb, Heart Rate 80 /min Feb, Respiratory Rate 18 /min Feb, Temperature 98.9 degrees Fahrenheit Feb, Oximetry 100% Feb, Blood pressure systolic 118 mm Hg Feb, Blood pressure diastolic 72 mm Hg Feb, MEDICATIONS Medication SIG (Take, Route, Frequency, Duration) Notes Start Da te End Date Status Zinc 50 MG 1 tablet Orally Once a day for 30 day(s) Active Cranberry Extract 84 mg 1 capsule Orally once a day Active Prolia 60 MG/ML as directed Subcutaneous every 6 months for 180 days Jan, Active Vitamin D3 Maximum Strength 5000 UNIT takes 1000 units Orally once da lamar Active buPROPion HCl ER (XL) 150 MG 1 tablet in the morning O rally Once a day for 90 days Active ZyrTEC Allergy 10 MG 1 tablet Orally Once a day for 30 day(s) Active Multivitamins - 1 cap Orally once a day Active Vitamin C 1000 MG 1 tablet Orally Once a day Active Dexilant 60 mg 1 tab(s) orally once a day Active Calcium 1000 + D 1000-800 MG-UNIT 1 tablet with a meal Orally Daily Active PROCEDURES No Information RESULTS No Results REASON FOR VISIT to establish MEDICAL (GENERAL) HISTORY Type Description Date Medical History Anxiety with depression Medical History acid reflux Medical History anxiety Medical History osteoporosis Medical History hx of anemia Medical History Danielleantony aguilaralisonamilcar score 14.14 % Medical History 04/2018 fx [...] No Information FUNCTIONAL STATUS No Information ASSESSMENTS Encounter Date Diagnosis Assessment Notes Treatment Notes Treatm ent Clinical Notes Feb, Anxiety disorder, unspecified (ICD-10 - F41.9) Denies suicidal thoughts, states Wellbutrin is working well Feb, Encounter to establish care (ICD-10 - Z76.89) age appropriate anticipatory guidance given, per USPSTF recommendations;. discussed plans for implementing improvement in identified areas Feb, Depression, unspecified depression type (ICD-10 - F32.9) Feb, Vitamin D deficiency (ICD-10 - E55.9) Rechecking level today, Feb, Osteoporosis without current pathological fracture, unspecified osteoporosis type (ICD-10 - M81.0) Gets Prolia through [facility] Feb, Screening for thyroid disorder (ICD-10 - Z13.29) Feb, Screening, lipid (ICD-10 - Z13.220) Feb, BMI less than 19,adult (ICD-10 - Z68.1) States she has always been thin has never been able to gain weight Feb, Family history of diabetes mellitus (DM) (ICD-10 - Z83.3) Her father has diabetes Feb, Other Signed release to get records from [employer] PLAN OF TREATMENT Medication Medication Name Sig Start Date Stop Date buPROPion HCl ER (XL) 150 MG 1 tablet in the morning O rally Once a day for 90 days Treatment Notes Assessment Notes Clinical Notes Anxiety disorder, unspecified Denies dylan cidal thoughts, states Wellbutrin is working well Encounter to establish care age appropri ate anticipatory guidance given, per USPSTF recommendations;. discussed plans for implementing improvement in identified areas Vitamin D deficiency Rechecking level to day, Osteoporosis without current pathologica l fracture, unspecified osteoporosis type Gets Prolia through [facility] BMI less than 19,adult States she has al ways been thin has never been able to gain weight Family history of diabetes mellitus (DM) Her father has diabetes Treatment Notes Test Name Order Date Comprehensive Metabolic Profile (CMP) 2021-02-22 VITAMIN D 25-HYDROXY 2021-02-22 CBC - Complete Blood Count 2021-02-22 LIPID PANEL (CARDIAC RISK) 2021-02-22 TSH 2021-02-22 HEMOGLOBIN A1c 2021-02-22 Next Appt Details 1 hear annual well exam Reason: Provider Name:Sayra Koch, 10:30:00 AM, [address] [facility], , [place], [address], Insurance Providers Payer Name Payer Address Payer Phone Insured Name Patient Relati onship to Insured Coverage Start Date Coverage End Date [facility] [place] [address] [facility] [phone] Asa Duckworth
--- OUTSIDE RECORDS SUMMARY | 2021-05-25 11:03 | CCD ---
Author Author [facility] Organization [facility] Address Unknown Phone Unavailable Care Team Providers Care Seafood Manager Name Role Phone Alla Sanchez Unavailable PROBLEMS Type Condition ICD9-CM Code [id number] Code Onset Dates Condition S tatus W/U Status Risk SNOMED Code Notes Problem Reflux esophagitis K21.0 Active confirmed 2 05145541 Problem Senile osteoporosis M81.0 Active confirmed 03593700 Problem Decreased libido R68.82 Active confirmed 835 7008 Problem Vitamin D deficiency E55.9 Active confirmed 82530872 Problem Anxiety state, unspecified F41.1 Active confirmed 725307170 Problem Age-related osteoporosis without current pathological fracture M81.0 Active confirmed 34225861 Problem Osteoporosis without current pathological fracture, unspecified osteoporosis type M81.0 Active confirmed 01395665 Problem Osteoporosis, unspecified os teoporosis type, unspecified pathological fracture presence M81.0 Active confirmed 56117943 Problem Anxiety disorder, unspecified F41.9 Active confirm ed 419686178 Problem Depression, unspecified depression type F32.9 Active confirmed 70206937 ALLERGIES Allergen (clinical drug ingredient) Drug/Non Drug Allergy do cumented on EMR Reaction Allergy Type Onset Date Status Levaquin unable to sleep Drug Allergy Active ENCOUNTERS from 1957 to 2021-05-02 Encounter Location Date Provider Diagnosis [facility] [address] [facility] [phone] [place] [address] Apr, Alla Sanchez Encounter for gyneco logical examination without abnormal finding Z01.419 ; Cervical cancer screening Z12.4 ; Breast cancer screening by mammogram Z12.31 ; Personal history of nicotine dependence Z87.891 ; Age-related osteoporosis without current pathological fracture M81.0 and Breast screening Z12.39 IMMUNIZATIONS Vaccine Route Administration Date Status Prolia [...] Answer Notes Level of Education: High School Protestant: Question Answer Notes Protestant 08 [employer] Sexual Hx: Question Answer Notes Had sex [...] FOR REFERRAL No Information VITAL SIGNS Weight 97 lbs Apr, Height 63 in Apr, BMI 17.18 kg/m2 Apr, Blood pressure systolic 104 mm Hg Apr, Blood pressure diastolic 60 mm Hg Apr, MEDICATIONS Medication SIG (Take, Route, Frequency, Duration) Notes Start Da te End Date Status Cranberry Extract 84 mg 1 capsule Orally once a day Active buPROPion HCl ER (XL) 150 MG 1 tablet in the morning O rally Once a day for 90 days Active Prolia 60 MG/ML as directed Subcutaneous every 6 months for 180 days Jan, Not-Taking Vitamin D3 Maximum Strength 5000 UNIT takes 1000 units Orally once da lamar Active Multivitamins - 1 cap Orally once a day Active Dexilant 60 mg 1 tab(s) orally once a day Active Vitamin C 1000 MG 1 tablet Orally Once a day Active ZyrTEC Allergy 10 MG 1 tablet Orally Once a day for 30 day(s) Active Zinc 50 MG 1 tablet Orally Once a day for 30 day(s) Active Calcium 1000 + D 1000-800 MG-UNIT 1 tablet with a meal Orally Daily Active PROCEDURES No Information RESULTS Component Value Reference Range WWBC DIGITAL / CEASAR BILATERAL MAMMO SCRE ENING (Ultrasound if indicated) Reviewed date:05/02/2021 15:19:37 Interpretation:Normal Performing Lab:[facility],[address]], ,[place] [address] REASON FOR VISIT ANNUAL/MAMMO MEDICAL (GENERAL) HISTORY Type Description Date Medical History Anxiety with depression Medical History acid reflux Medical History anxiety Medical History osteoporosis Medical History hx of anemia Medical History Tyrer cuzick score 14.14 % Medical History 04/2018 fx [...] Notes Treatment Notes Treatm ent Clinical Notes Apr, Encounter for gynecological examination without abnormal finding (ICD-10 - Z01.419) Pt to report any episodes of pmb or pelvic pain. Advise regular physical activity including weight bearing exercise most days of the week. Reviewed calcium rich foods. HCRA completed and reviewed Apr, Cervical cancer screening (ICD-10 - Z12.4) Reviewed ASCCP guidelines for pap screening and frequency, reviewed utility of HPV testing as well and when next pap will be due Apr, Breast cancer screening by mammogram (ICD-10 - Z 12.31) Reviewed screening intervals with mammography, recommend annual screening until age 75. Reviewed breast awareness, know what is normal for you so that you can detect any changes in the breasts, check breasts regularly, in a routine that you are comfortable with. Apr, Personal history of nicotine dependence (ICD-10 - Z87.891) Apr, Age-related osteoporosis wit hout current pathological fracture (ICD-10 - M81.0) Apr, Breast screening (ICD-10 - Z12.39) Apr, Other Continue weight bearing exercises calcuim and vit D supplementation .Fall prevention PLAN OF TREATMENT Treatment Notes Assessment Notes Clinical Notes Encounter for gynecological examination without abnormal fin ding Pt to report any episodes of pmb or pelvic pain. Advise regular physical activity including weight bearing exercise most days of the week. Reviewed calcium rich foods.HCRA completed and reviewed Cervical cancer screening Reviewed ASCCP guidelines for pap screening and frequency, reviewed utility of HPV testing as well and when next pap will be due Breast cancer screening by mammogram Rev iewed screening intervals with mammography, recommend annual screening until age 75. Reviewed breast awareness, know what is normal for you so that you can detect any changes in the breasts, check breasts regularly, in a routine that you are comfortable with. Treatment Notes Test Name Order Date PAP REQUEST FOR SERVICE 2021-05-02 Next Appt Details Needs to schedule for prolia Reason: Provider Name:Sayra Koch, 10:30:00 AM, [address] [facility], , [place], [address], Insurance Providers Payer Name Payer Address Payer Phone Insured Name Patient Relati onship to Insured Coverage Start Date Coverage End Date [facility] [place] [place] [address] [facility] [phone] Asa Duckworth
[2021-05-25] MEDS ORDERED: AZIT-12 PO (11:05)
--- OUTSIDE RECORDS SUMMARY | 2021-05-25 12:24 | CCD ---
Author Author [facility] Organization [facility] Address Unknown Phone Unavailable Care Team Providers Care Client Associate Name Role Phone Helen Hensley MD Unavailable [...] is protected by Article 27-F of the [facility] Public Health law. If you continue you may have access to information: Regarding HIV / AIDS; Provided by facilities licensed or operated by the [facility] Office of Mental Health; or Provided by the [facility] Office for People With Developmental Disabilities. If such information is present, then the following [facility] mandated warning applies: This information has been [...] law may result in a fine or prison sentence or both. A general authorization for [...] Date Indications Data Source(s ) Unknown [address] [address] [address] 05/24/2021 12:00:00 AM EDT eCW1 ([facility]) [place] [address] [facility] [address] 05/22/2021 12:00:00 AM EDT eCW1 ([facility]) Outpatient Attender: Rody Paulino 10:21:04 AM EDT - 05/21/2021 01:02:12 PM EDT DocuTap ([facility]) [place] [address] [facility] [address] 05/02/2021 12:00:00 AM EDT eCW1 ([facility]) [place] [address] [facility] [address] 02/22/2021 12:00:00 AM EDT eCW1 ([facility]) Outpatient Attender: Harriett Borrego 04/2020 10:15:00 AM EST MEDENT ([facility] ) Medications Medication Brand Name Start Date Product Form Dose Route Admi nistrative Instructions Pharmacy Instructions Status Indications Reaction Description Data Source(s) Azithromycin 250 MG Oral Tablet [Zithromax] Zithromax 250 MG Zithromax 250 MG 05/22/2021 12:00:00 AM EDT active Zithromax 250 MG eCW1 ([facility]) Azithromycin 250 MG Oral Tablet [Zithromax] Zithromax 250 MG Zithromax 250 MG 05/22/2021 12:00:00 AM EDT active Zithromax 250 MG eCW1 ([facility]) Insurance Providers Payer name Policy type / Coverage type Policy ID Covered green party ID Covered green party's relationship to arguelles Policy Arguelles Plan Information [employer] CLAIM ADMIN WORK COMP [id number] SP [id number] AVNI CLAIM ADMIN WORK COMP [facility]-[id number] SP [facility]-[id number] [facility] [id number] [facility] [id number] [employer] [id number] [facility] [id number] [place] [id number] [facility] [id number] [facility] [id number] [facility] [id number] [facility] [id number] SP [id number] [place] Ppo Commercial [id number] Family Dependent [id number] [place]/Umr (Old) Medigap Part B [id number] Family Dependent [id number] [place] (Old) Medigap Part B [id number] Family Dependent [id number] Umr [place] P[employer] Commercial [id number] Family Dependent [id number] Umr [place] P[employer] Commercial [id number] Family Dependent [id number] [place] (Old) Medigap Part B [id number] Family Dependent [id number] [employer] Ppo Commercial [id number] Family Dependent [place]/Umr (Old) Medigap Part B [id number] Family Dependent [id number] [place] (Old) Medigap Part B [id number] Family Dependent [id number] [place] P[employer] Commercial [id number] Family Dependent [id number] [place] Ppo Commercial [id number] Family Dependent [id number] [employer] Compensation [id number] Self [employer] Compensation [id number] Self [id number] UMR U [id number] Spouse [id number] r Care Management [id number] 1 [id number] Umr ([place]) Commercial [id number] Family Dependent [id number] [facility] [place] [employer]. [id number] Self [id number] ANSI-Commercial [id number] [employer] [id number] HU2 [id number] ANSI-Commercial [id number] UMR [facility] [id number] HU2 [id number] [employer] CLAIM ADMIN WORK O [id number] S [id number] UMR [facility] [id number] HU2 [id number] Umr Commercial [id number] Family Dependent [id number] ANSI-Commercial [id number] [employer] Medigap Part B [id number] Self [employer] Medigap Part B [id number] Self [id number] [facility] O [id number] S [id number] UMR O [id number] S [id number] UMR [facility] [id number] HU2 [id number] [place] Commercial [id number] Family Dependent [employer] PPO O [id number] S [id number] [employer]-O/P [id number] [id number] [facility] HU2 c [id number] [employer] [id number] 2 [id number] ANSI-Commercial [id number] [employer] PPO O [id number] P [id number] Problems, Conditions, and Diagnoses Code Display Name Description Problem Type Effective Dates Data Source(s) M81.0 [id number] Age-related osteoporosis without current pathological fracture Problem 05/02/2021 12:00:00 AM EDT eC ([facility]) F32.9 [id number] Depression, unspecified depression type P roblem 02/22/2021 12:00:00 AM EDT eC ([facility]) F41.9 [id number] Anxiety disorder, unspecified Problem 02/22/2021 12:00:00 AM EDT eCW1 ([facility]) E55.9 [id number] Vitamin D deficiency Problem 02/22/2021 12:0 0:00 AM EDT eC ([facility]) Surgeries/Procedures No Information Results ID Date Data Source [facility] DIGITAL / CEASAR BILATERAL MAMMO SCREENING (Ultraso und if indicated) 05/02/2021 12:00:00 AM EDT eC ([facility]) Name Value Range Interpretation Code Description Data Lauren rce(s) Supporting Document(s) BC DIGITAL / CEASAR BILAT ERAL MAMMO SCREENING (Ultrasound if indicated) eC ([facility]) ID Date Data Source [id number] 06/16/2020 08:08:00 AM EST MEDENT ([facility]) Name Value Range Interpretation Code Description Data Lauren rce(s) Supporting Document(s) Cholesterol [Mass/volume] in Serum or Plasma 243 mg/dL 131-200 MED[facility] ([facility]) Cholesterol in HDL [Mass/volume] in Serum or Plasma 75 mg/dL 35-60 [facility] ([facility]) Cholesterol in LDL [Mass/volume] in Serum or Plasma by calcu lation 147 CALC 50-159 [facility] ([facility]) Triglyceride [Mass/volume] in Serum or Plasma 107 mg/dL 30-150 [facility] ([facility]) ID Date Data Source [id number] 06/16/2020 08:08:00 AM EST MEDENT ([facility]) Name Value Range Interpretation Code Description Data Lauren rce(s) Supporting Document(s) Glucose [Mass/volume] in Serum or Plasma 85 mg/dL 74-99 [facility] ([facility]) 100-125 mg/dL PRE-DIABETES/FASTING >126 mg/dL DIABETES/FASTING Urea nitrogen [Mass/volume] in Serum or Plasma 16 mg/dL 7-18 [facility] ([facility]) Creatinine 1.0 mg/dL 0.6-1.3 MED[facility] Chloride [Moles/volume] in Serum or Plasma 103 meq/L 98-107 [facility] ([facility]) Sodium [Moles/volume] in Serum or Plasma 143 meq/L 136-145 [facility] ([facility]) Carbon dioxide, total [Moles/volume] in Serum or Plasma 33 meq/L 21 -32 [facility] ([facility]) Potassium [Moles/volume] in Serum or Plasma 4.5 meq/L 3.5-5.1 [facility] ([facility]) Total Bilirubin 0.4 mg/dL 0.2-1.0 MEDENT ([facility]) Alkaline phosphatase isoenzyme [Units/volume] in Serum or Pl asma 39 mg/dL 46-116 [facility] ([facility]) Calcium [Mass/volume] in Serum or Plasma 9.2 mg/dL 8.5-10.1 [facility] ([facility]) Proteinase 3 Ab [Units/volume] in Serum 6.9 g/dL 6.4-8.2 [facility] ([facility]) Alanine aminotransferase [Enzymatic activity/volume] in Seru m or Plasma 23 U/L 12-78 [facility] ([facility]) Aspartate aminotransferase [Enzymatic activity/volume] in Serum or Plasma 26 U/L 15-37 [facility] Albumin [Mass/volume] in Serum or Plasma 4.2 g/dL 3.4-5.0 [facility] ([facility]) A/G Ratio 1.56 CALC 1.00-1.90 [facility] ([facility]) Glomerular filtration rate/1.73 sq M pre dicted among non-blacks [Volume Rate/Area] in Serum or Plasma by Creatinine-based formula (MDRD) 56 mL/min [facility] Glomerular filtration rate/1.73 sq M pre dicted among blacks [Volume Rate/Area] in Serum or Plasma by Creatinine-based formula (MDRD) Laboratory test result [facility] <content>CHRONIC KIDNEY DISEASE STAGING PER NKF</content>
<content></content>
<content>STAGE I & II GFR >= 60 NORMAL TO MILDLY DECREASED</content>
<content>STAGE III GFR 30-59 MODERATELY DECREASED</content>
<content>STAGE IV GFR 15-29 SEVERELY DECREASED</content>
<content>STAGE V GFR <15 VERY LITTLE GFR LEFT</content>
<content>ESRD GFR <15 ON PUBLIC HEALTH EDUCATOR</content>
<content></content> ID Date Data Source [id number] 06/16/2020 08:08:00 AM EST [facility] ([facility]) Name Value Range Interpretation Code Description Data Lauren rce(s) Supporting Document(s) Leukocytes [#/volume] in Blood by Automated count 4.3 x10*3/UL 4.1-10 .9 [facility] ([facility]) Hemoglobin [Mass/volume] in Blood 12.8 g/dL 12.0-18.0 [facility] ([facility]) Hematocrit [Volume Fraction] of Blood by Automated count 38.2 % 3 7.0-51.0 [facility] Erythrocytes [#/volume] in Blood by Automated count 4.17 x10*6/UL 4.2 0-6.30 [facility] ([facility]) MCV 91.4 fL 80.0-97.0 [facility] ([facility]) MCH 30.7 pg 26.0-32.0 [facility]) MCHC 33.6 g/dL 31.0-38.0 [facility] ([facility]) Erythrocyte distribution width [Ratio] by Automated count 13.0 % 11.6-13.7 [facility] ([facility]) Platelets [#/volume] in Blood by Automated count 303 x10*3/UL 140-440 [facility] ([facility]) MPV 8.4 FL 7.8-11.0 [facility] ([facility]) Lymph % 32.8 % 10.0-58.5 [facility] ([facility]) Mid % 8.1 % 1.7-9.3 [facility] ([facility]) Neut # 2.5 x10*3/UL 2.0-7.8 [facility] ([facility]) Lymph # 1.4 x10*3/UL 0.6-4.1 [facility] ([facility]) Mid # 0.4 x10*3/UL 0.1-0.6 [facility] ([facility]) Neut % 59.1 % 37.0-92.0 [facility] ([facility]) Procedure Social History Code Duration Value Status Description Data Source(s ) Smoking 05/24/2021 12:00:00 AM EDT Former Smoker completed Former Smoker eCW1 ([facility]) Smoking 05/02/2021 12:00:00 AM EDT Former Smoker completed Former Smoker eCW1 ([facility]) Smoking 05/02/2021 12:00:00 AM EDT Former Smoker completed Former Smoker eCW1 ([facility]) Smoking 02/25/2021 12:00:00 AM EDT Former Smoker completed Former Smoker eCW1 ([facility]) Vital Signs ID Date Data Source UNK Name Value Range Interpretation Code Description Data Source(s) Body weight 97 [lb_av] 97 [lb_av] eCW1 ([facility]) Body height 63 [in_i] 63 [in_i] eCW1 ([facility]) Body mass index (BMI) [Ratio] 17.18 kg/m2 17.18 kg/m2 eCW1 ([facility]) Systolic blood pressure 104 mm[Hg] 104 mm[Hg] e CW1 ([facility]) Diastolic blood pressure 60 mm[Hg] 60 mm[Hg] eCW1 ([facility]) Body weight 96.4 [lb_av] 96.4 [lb_av] eCW1 ([facility]) Body height 63 [in_i] 63 [in_i] eCW1 ([facility]) Heart rate 80 /min 80 /min eCW1 ([facility]) Respiratory rate 18 /min 18 /min eCW1 ([facility]) Body temperature 98.9 [degF] 98.9 [degF] eCW1 ( [facility]) Systolic blood pressure 118 mm[Hg] 118 mm[Hg] e CW1 ([facility]) Diastolic blood pressure 72 mm[Hg] 72 mm[Hg] eCW1 ([facility]) Body mass index (BMI) [Ratio] 17.07 kg/m2 17.07 kg/m2 eCW1 ([facility]) Body mass index (BMI) [Ratio] 18.3 kg/m2 18.3 k g/m2 MEDENT ([facility]) Systolic blood pressure 114 mm[Hg] 114 mm[Hg] M EDENT ([facility]) Diastolic blood pressure 70 mm[Hg] 70 mm[Hg] MED[facility] ([facility]) Heart rate 74 /min 74 /min MEDENT ([facility]) Body height 61 [in_i] 61 [in_i] MEDENT ([facility]) 5'1" Body weight 97.00 [lb_av] 97.00 [lb_av] MEDENT ([facility]) Oxygen saturation in Arterial blood by Pulse oximetry 99 % 99 % MEDENT ([facility]) Patient Treatment Plan of Care Planned Activity Planned Date Details Description Data Source (s) Azithromycin 250 MG Oral Tablet [Zithromax] 05/22/2021 12:00:00 AM EDT eCW1 ([facility]) Azithromycin 250 MG Oral Tablet [Zithromax] 05/22/2021 12:00:00 AM EDT eCW1 ([facility])
[2021-05-25] MEDS ORDERED: NS 500 ML IV ONE (13:20)
[2021-05-25 13:25] LABS: BASO % 0.5 % (0.0-1.0); EOS % 0.2 % (0.0-3.0); HEMOGLOBIN 14.1 g/dl (12.0-15.5); LYMPH # 0.6 10^3/uL (1.5-5.0); MEAN CORPUSCULAR HEMOGLOBIN 30.5 pg (27.0-33.0); MONO # 0.4 10^3/uL (0.0-0.8); MONO % 8.7 % (2.0-8.0); NEUTROPHILS # 3.1 10^3/uL (1.5-8.5); NEUTROPHILS % 75.4 % (36.0-66.0); PLATELET COUNT, AUTOMATED 225 10^3/uL (150-450); RED BLOOD COUNT 4.63 10^6/uL (4.00-5.40); WHITE BLOOD COUNT 4.1 10^3/uL (4.0-10.0)
[2021-05-25 13:42] LABS: ALT/SGPT 36 U/L (12-78); BILIRUBIN,DIRECT 0.1 MG/DL (0.0-0.2); BILIRUBIN,TOTAL 0.4 MG/DL (0.2-1.0); BLOOD UREA NITROGEN 25 MG/DL (7-18); CALCIUM LEVEL 8.8 MG/DL (8.8-10.2); CARBON DIOXIDE LEVEL 23 MEQ/L (21-32); CHLORIDE LEVEL 103 MEQ/L (98-107); CK-MB VALUE MASS < 1.0 NG/ML (<3.6); CPK CREATINE PHOSPHOKINASE 50 U/L (26-192); CREATININE FOR GFR 0.85 MG/DL (0.55-1.30); GLOMERULAR FILTRATION RATE > 60.0 (>45); GLUCOSE, FASTING 63 MG/DL (70-100); LIPASE 818 U/L (73-393); POTASSIUM SERUM 4.7 MEQ/L (3.5-5.1); SODIUM LEVEL 138 MEQ/L (136-145); TOTAL PROTEIN 7.6 GM/DL (6.4-8.2); TROPONIN I < 0.02 NG/ML (< 0.10)
[2021-05-25] MEDS ORDERED: VITMTA PO (14:27)
[2021-05-25] MEDS ORDERED: FEXO-5 PO (14:27)
[2021-05-25] MEDS ORDERED: FLUTISP NARES (14:27)
[2021-05-25] MEDS ORDERED: ZINC220CA PO (14:27)
[2021-05-25] MEDS ORDERED: ISOVUE-370 76% 100ML VIAL As Ordered ONE (14:27)
[2021-05-25] MEDS ORDERED: VITA250T4 PO (14:27)
[2021-05-25] MEDS ORDERED: D-50TAB PO (14:27)
[2021-05-25] MEDS ORDERED: HOME MED LIST COMPLETE! XX SCH (14:30)
--- NOTE | 2021-05-25 15:03 | REP ---
INDICATION: pancreatitis vomiting. COMPARISON: 05/02/2018 TECHNIQUE: Axial contrast-enhanced images from the lung bases to the pubic symphysis using 100 cc Isovue 370 intravenous contrast material. Coronal and sagittal reformations obtained. This CT examination was performed using the following dose reduction techniques: Automated exposure control, adjustment of mA and/or kv according to the patient's size, and the use of iterative reconstruction technique. FINDINGS: Liver, spleen, pancreas, gallbladder, bilateral adrenal glands and kidneys are normal. Specifically, the pancreas is normal in appearance without peripancreatic inflammatory stranding or fluid collection. The enteric system is without obstruction or acute inflammatory process. Normal terminal ileum and appendix are identified in the right lower quadrant. Extensive colonic and sigmoid diverticulosis noted without obvious acute diverticulitis.. Pelvis demonstrates normal bladder and age-appropriate prostate/seminal vesicles. No ascites. No free air. No intraperitoneal or retroperitoneal adenopathy. Abdominal aorta and vasculature appear normal. Musculoskeletal structures are intact and without acute osseous abnormality. Lung bases are clear. IMPRESSION: No acute abdominopelvic pathology appreciated. Diverticulosis without acute diverticulitis. <Electronically signed by Reji Singh > 05/25/21 [id number]
[2021-05-25] MEDS ORDERED: ACETAMINOPHEN TAB 650MG DOSE (2X325MG) PO PRN (15:50)
[2021-05-25] MEDS ORDERED: MAALOX 30 ML SUSP *UDC PO PRN (15:50)
[2021-05-25] MEDS ORDERED: MOM 30ML SUSPENSION UDC PO PRN (15:50)
[2021-05-25] MEDS ORDERED: FLUTICASONE PROP 0.05% NASAL SPRAY 16 GM (FLONASE) NARES PRN (16:00)
[2021-05-25] MEDS ORDERED: oxyCODONE 5MG TAB PO PRN (16:00)
--- NOTE | 2021-05-25 16:00 | HPEPDOC ---
[facility] Medical History & Physical Date of Admission May 25, 2021 Date of Service: May 25, 2021 History and Physical CHIEF COMPLAINT: Malaise, nausea, abdominal discomfort HISTORY OF PRESENT ILLNESS: 65-year-old female with a past medical history of GERD, depression, presented to the ER with a weeklong history of malaise g eneralized weakness abdominal discomfort and nausea. Patient first developed symptoms 7 days ago and was diagnosed with COVID-19 2 days later at an urgent care. Upon arrival to the ED patient is afebrile and satting 97% on room air. She is normotensive. Her orthostats are negative. Due to abdominal discomfort patient's lipase was checked which was elevated to 818. CT abdomen and pelvis are unremarkable showing diverticulosis without diverticulitis. Patient denies any chest pain, palpitations, blurred vision, headache, or diarrhea. Patient denies any alcohol use. Patient has no prior history of pancreatitis. Patient does have a BMI of 16.2 states that she has had issues with appetite and fluid intake during periods of anxiety and depression. Since her last episode she has had difficult time gaining weight even though she has a good appetite. She denies any chronic diarrhea, jaundice, or chronic abdominal pain. Patient be admitted to hospital service for observation in the setting of acute pancreatitis. PAST MEDICAL HISTORY: Depression, GERD PAST SURGICAL HISTORY: tonsillectomy SOCIAL HISTORY: Patient denies smoking Patient denies etoh use Patient denies illicit drug use FAMILY HISTORY: Motherbreast cancer ALLERGIES: Please see below. REVIEW OF SYSTEMS: 10 point ROS conducted, relevant findings noted in the HPI HOME MEDICATIONS: Please see below. PHYSICAL EXAMINATION: VITAL SIGNS: please see below General: NAD, comfortable HEENT: PERRLA, EOMI, sclerae clear Neck: supple, normal ROM, no JVD Respiratory: lungs CTAB, no wheeze, no rales, no crackles CVS: RRR, normal S1, S2, no murmurs Abdo: soft, no masses, no hepatosplenomegaly, BS+, no rebound tenderness Extremities: no edema, pulses 2+ MSK: no joint deformities, normal ROM Neuro: no focal neuro deficits, moving all 4 extremities, CN2-12 intact. Strength 5/5 in all 4 extremities. No nystagmus. Psych: calm, cooperative, AAO x 3 LABORATORY DATA: See below. IMAGING: CT abdomen pelvis with IV contrast on 05/25/2021: No acute abdominopelvic pathology appreciated. Diverticulosis without acute diverticulitis. MICROBIOLOGY: Please see below. ASSESSMENT: 65-year-old female with a history of GERD and depression, diagnosed with Covid 5 days ago presented with diarrhea malaise generalized weakness. Diagnosed with pancreatitis in the setting of elevated lipase. Will be admitted for observation. . PLAN: COVID-19 infection: onset sx 7 days. Afebrile. No hypoxia. Not candidate for remdesivir/dexamethasone. Supportive care. Tylenol prn for fever. Combivent prn for SOB. Abdominal discomfort/nausea - likely 2/2 pancreatitis: lipase 818. CT abdo pelvis shows no pancreatic inflammation/cyst. Bowel rest. Sips and chips. IVF NS 125 cc/hr. Morphine prn for breakthrough. Oxycodone 5 mg q6h prn. Pantoprazol. Bentyl. Depression: c/w home regimen. GERD: PPI. Sucralfate ACHS. Protein calorie malnutrition: dietary consult/referral. DVT ppx: SCDs. TEDs. Dispo: admitted for observation; hospital stay expected to span < 48 hours. Vital Signs Vital Signs Date Time Temp Pulse Resp B/P (MAP) Pulse Ox O2 Delivery O2 Flow Rate FiO2 05/25/21 13:12 80 117/65 (82) 80 136/83 (100) 80 103/68 (80) 05/25/21 10:56 97.4 18 97 Room Air Laboratory Data Labs 24H Laboratory Tests 2 05/25/21 12:46: Immature Granulocyte % (Auto) 0.2, Neutrophils (%) (Auto) 75.4H, Lymphocytes (%) (Auto) 15.0L, Monocytes (%) (Auto) 8.7H, Eosinophils (%) (Auto) 0.2, Basophils (%) (Auto) 0.5, Neutrophils # (Auto) 3.1, Lymphocytes # (Auto) 0.6L, Monocytes # (Auto) 0.4, Eosinophils # (Auto) 0.0, Basophils # (Auto) 0.0, Nucleated Red Blood Cells % (auto) 0.0, Anion Gap 12, Glomerular Filtration Rate > 60.0, Calcium Level 8.8, Total Bilirubin 0.4, Direct Bilirubin 0.1, Aspartate Amino Transf (AST/SGOT) 45H, Alanine Aminotransferase (ALT/SGPT) 36, Alkaline Phosphatase 58, Total Creatine Kinase 50, Creatine Kinase MB < 1.0, Creatine Kinase MB Relative Index 2.00, Troponin I < 0.02, Total Protein 7.6, Albumin 4.0, Albumin/Globulin Ratio 1.1L, Lipase 818H CBC/BMP Laboratory Tests 05/25/21 12:46 Home Medications Scheduled Ascorbic Acid (Vitamin C) 250 Mg Tablet, 250 MG PO DAILY Azithromycin (Azithromycin) 250 Mg Tablet, 25 MG PO DAILY Bupropion HCl (Wellbutrin Xl) 150 Mg Tab.er.24h, 150 MG PO DAILY Calcium Carbonate/Vitamin D3 (Calcium 600+D Softgel) 1 Each Capsule, 2 CAP PO DAILY Cholecalciferol (Vitamin D3) (Vitamin D3) 125 Mcg Tablet, 125 MCG PO DAILY Cranberry Fruit (Cranberry) 450 Mg Tablet, 450 PO DAILY Dexlansoprazole (Dexilant) 60 Mg Cap.drAnastasiabp, 60 MG PO DAILY Fexofenadine HCl (Fexofenadine HCl) 180 Mg Tablet, 180 MG PO DAILY Multivitamins (Thera M Plus Tablet) 1 Each Tablet, 1 TAB PO DAILY Zinc Sulfate (Zinc Sulfate) 220 Mg Capsule, 220 MG PO DAILY Scheduled PRN Fluticasone Propionate (Fluticasone Propionate) 16 Gm Omak.susp, 1 SPRAY NARES DAILY PRN for CONGESTION Sucralfate (Carafate) 1 Gm Tablet, 1 GM PO QID PRN for INDIGESTION Allergies Coded Allergies: levofloxacin (Verified Allergy, Intermediate, insomnia, 03/26/19) ENVIROMENTAL (Verified Allergy, Unknown, 03/26/19) BIN BERNAL MD May 25, 2021 16:00
--- OUTSIDE RECORDS SUMMARY | 2021-05-25 16:00 | CCD ---
Author Author [facility] Organization [facility] Address Unknown Phone Unavailable Care Team Providers Care Delivery And Mail Sorter Name Role Phone Helen Hensley MD Unavailable [...] Unavailable KELLY, J Harriett ANP Unavailable Unavailable EKLLY, J Harriett ANP Unavailable Unavailable KELLY, J [...] is protected by Article 27-F of the [facility] Public Health law. If you continue you may have access to information: Regarding HIV / AIDS; Provided by facilities licensed or operated by the [facility] Office of Mental Health; or Provided by the [facility] Office for People With Developmental Disabilities. If such information is present, then the following [facility] mandated warning applies: This information has [...] law may result in a fine or nursing home sentence or both. A general authorization for [...] Date Indications Data Source(s ) Unknown [address] [facility] [address] [address] 05/24/2021 12:00:00 AM EDT eCW1 (Critical access hospital) Unknown [address] [facility] [address] [address] 05/22/2021 12:00:00 AM EDT eCW1 (Critical access hospital) Outpatient Attender: Rody Paulino 10:21:04 AM EDT - 05/21/2021 01:02:12 PM EDT [facility] ([facility]) [place] [address] [facility] [place] [address] 05/02/2021 12:00:00 AM EDT eCW1 (Critical access hospital) [place] [address] [facility] [address] [place] [address] 02/22/2021 12:00:00 AM EDT eCW1 (Critical access hospital) Outpatient Attender: Harriett Borrego 04/2020 10:15:00 AM EST [facility] ([facility] ) Medications Medication Brand Name Start Date Product Form Dose Route Admi nistrative Instructions Pharmacy Instructions Status Indications Reaction Description Data Source(s) Azithromycin 250 MG Oral Tablet [Zithromax] Zithromax 250 MG Zithromax 250 MG 05/22/2021 12:00:00 AM EDT active Zithromax 250 MG eCW1 ([facility]) Azithromycin 250 MG Oral Tablet [Zithromax] Zithromax 250 MG Zithromax 250 MG 05/22/2021 12:00:00 AM EDT active Zithromax 250 MG eCW1 ([facility]) Insurance Providers Payer name Policy type / Coverage type Policy ID Covered democrat ID Covered democrat's relationship to arguelles Policy Arguelles Plan Information [employer] CLAIM ADMIN WORK COMP [id number] SP [id number] [employer] CLAIM ADMIN WORK COMP [id number] SP [id number] [employer] [id number] [facility] [id number] [facility] HE[facility]URANCE [id number] [facility] [id number] [employer] [id number] [facility] [id number] [employer] [id number] [facility] [id number] [facility] [id number] SP [id number] [employer] Ppo Commercial [id number] Family Dependent [id number] [employer]/Umr (Old) Medigap Part B [id number] Family Dependent [id number] [employer]Um[employer] (Old) Medigap Part B [id number] [id number] Family Dependent [id number] Umr [employer] P[employer] Commercial [id number]. [id number] Family Dependent [id number] Umr [employer] Ppo Commercial [id number]. [id number] Family Dependent [id number] [employer]Um[employer] (Old) Medigap Part B [id number] Family Dependent [id number] [employer] P[employer] Commercial [id number] Family Dependent [employer]/Umr (Old) Medigap Part B [id number] [id number] Family Dependent [id number] [employer]/Um[employer] (Old) Medigap Part B [id number] [id number] Family Dependent [id number] [employer] P[employer] Commercial [id number] Family Dependent [id number] [employer] P[employer] Commercial [id number] [id number] Family Dependent [id number] [employer] Compensation [id number] Self [employer] Compensation [id number] Self [id number] UMR U [id number] Spouse [id number] r Care Management [id number] 1 [id number] Umr (New [employer]) Commercial [id number] Family Dependent [id number] [facility] [employer] [id number] Self [id number] ANSI-Commercial [id number] [employer] [id number] HU2 [id number] ANSI-Commercial [id number] R [facility] [id number] HU2 [id number] [employer] CLAIM ADMIN WORK O [id number] S [id number] R [facility] [id number] HU2 [id number] r Commercial [id number] Family Dependent [id number] ANSI-Commercial [id number] R [facility] [id number] HU2 [id number] [employer] Medigap Part B [id number] Self [employer] Medigap Part B [id number] Self [id number] [facility] O [id number] S [id number] UMR O [id number] S [id number] [employer] Commercial [id number] Family Dependent [employer] PPO O [id number] S [id number] [employer]-O/P [id number] 01 [id number] R [facility] HU2 c [id number] [employer] [id number] 2 [id number] ANSI-Commercial [id number] [employer] PPO O [id number] P [id number] Problems, Conditions, and Diagnoses Code Display Name Description Problem Type Effective Dates Data Source(s) M81.0 [id number] Age-related osteoporosis without current pathological fracture Problem 05/02/2021 12:00:00 AM EDT eC ([facility]) F32.9 [id number] Depression, unspecified depression type P roblem 02/22/2021 12:00:00 AM EDT [facility] ([facility]) F41.9 [id number] Anxiety disorder, unspecified Problem 02/22/2021 12:00:00 AM EDT eCW1 ([facility]) E55.9 [id number] Vitamin D deficiency Problem 02/22/2021 12:0 0:00 AM EDT eC ([facility]) Surgeries/Procedures No Information Results ID Date Data Source [facility] DIGITAL / CEASAR BILATERAL MAMMO SCREENING (Ultraso und if indicated) 05/02/2021 12:00:00 AM EDT [facility] ([facility]) Name Value Range Interpretation Code Description Data Lauren rce(s) Supporting Document(s) [facility] DIGITAL / CEASAR BILAT ERAL MAMMO SCREENING (Ultrasound if indicated) [facility] ([facility]) ID Date Data Source [id number] 06/16/2020 08:08:00 AM EST [facility] ([facility]) Name Value Range Interpretation Code Description Data Lauren rce(s) Supporting Document(s) Cholesterol [Mass/volume] in Serum or Plasma 243 mg/dL 131-200 [facility] ([facility]) Cholesterol in HDL [Mass/volume] in Serum or Plasma 75 mg/dL 35-60 [facility] ([facility]) Cholesterol in LDL [Mass/volume] in Serum or Plasma by calcu lation 147 CALC 50-159 [facility] ([facility]) Triglyceride [Mass/volume] in Serum or Plasma 107 mg/dL 30-150 [facility] ([facility]) ID Date Data Source [id number] 06/16/2020 08:08:00 AM EST [facility] ([facility]) Name Value Range Interpretation Code Description Data Lauren rce(s) Supporting Document(s) Glucose [Mass/volume] in Serum or Plasma 85 mg/dL 74-99 [facility] ([facility]) 100-125 mg/dL PRE-DIABETES/FASTING >126 mg/dL DIABETES/FASTING Urea nitrogen [Mass/volume] in Serum or Plasma 16 mg/dL 7-18 [facility] ([facility]) Creatinine 1.0 mg/dL 0.6-1.3 [facility] Chloride [Moles/volume] in Serum or Plasma 103 meq/L 98-107 [facility] ([facility]) Sodium [Moles/volume] in Serum or Plasma 143 meq/L 136-145 [facility] ([facility]) Carbon dioxide, total [Moles/volume] in Serum or Plasma 33 meq/L 21 -32 [facility] ([facility]) Potassium [Moles/volume] in Serum or Plasma 4.5 meq/L 3.5-5.1 [facility] ([facility]) Total Bilirubin 0.4 mg/dL 0.2-1.0 [facility] ([facility]) Alkaline phosphatase isoenzyme [Units/volume] in Serum or Pl asma 39 mg/dL 46-116 [facility] ([facility]) Calcium [Mass/volume] in Serum or Plasma 9.2 mg/dL 8.5-10.1 [facility] ([facility]) Proteinase 3 Ab [Units/volume] in Serum 6.9 g/dL 6.4-8.2 [facility] ([facility]) Alanine aminotransferase [Enzymatic activity/volume] in Seru m or Plasma 23 U/L 12-78 [facility] ([facility]) Aspartate aminotransferase [Enzymatic activity/volume] in Serum or Plasma 26 U/L 15-37 [facility] ([facility] ) Albumin [Mass/volume] in Serum or Plasma 4.2 g/dL 3.4-5.0 [facility] ([facility]) A/G Ratio 1.56 CALC 1.00-1.90 [facility] ([facility] [place] Glomerular filtration rate/1.73 sq M pre dicted among non-blacks [Volume Rate/Area] in Serum or Plasma by Creatinine-based formula (MDRD) 56 mL/min [facility] Glomerular filtration rate/1.73 sq M pre dicted among blacks [Volume Rate/Area] in Serum or Plasma by Creatinine-based formula (MDRD) Laboratory test result [facility] ([facility]) <content>CHRONIC KIDNEY DISEASE STAGING PER NKF</content>
<content></content>
<content>STAGE I & II GFR >= 60 NORMAL TO MILDLY DECREASED</content>
<content>STAGE III GFR 30-59 MODERATELY DECREASED</content>
<content>STAGE IV GFR 15-29 SEVERELY DECREASED</content>
<content>STAGE V GFR <15 VERY LITTLE GFR LEFT</content>
<content>ESRD GFR <15 ON LABORATORY CHEMIST</content>
<content></content> ID Date Data Source [id number] 06/16/2020 08:08:00 AM EST [facility] Name Value Range Interpretation Code Description Data Lauren rce(s) Supporting Document(s) Leukocytes [#/volume] in Blood by Automated count 4.3 x10*3/UL 4.1-10 .9 [facility] ([facility]) Hemoglobin [Mass/volume] in Blood 12.8 g/dL 12.0-18.0 [facility] ([facility]) Hematocrit [Volume Fraction] of Blood by Automated count 38.2 % 3 7.0-51.0 [facility] ([facility]) Erythrocytes [#/volume] in Blood by Automated count 4.17 x10*6/UL 4.2 0-6.30 [facility]) MCV 91.4 fL 80.0-97.0 [facility] MCH 30.7 pg 26.0-32.0 [facility] MCHC 33.6 g/dL 31.0-38.0 [facility] Erythrocyte distribution width [Ratio] by Automated count 13.0 % 11.6-13.7 [facility] ([facility]) Platelets [#/volume] in Blood by Automated count 303 x10*3/UL 140-440 [facility] ([facility]) MPV 8.4 FL 7.8-11.0 [facility]) Lymph % 32.8 % 10.0-58.5 [facility] Mid % 8.1 % 1.7-9.3 [facility] Neut # 2.5 x10*3/UL 2.0-7.8 [facility] ([facility]) Lymph # 1.4 x10*3/UL 0.6-4.1 [facility] ([facility]) Mid # 0.4 x10*3/UL 0.1-0.6 [facility] ([facility]) Neut % 59.1 % 37.0-92.0 [facility]) Procedure Social History Code Duration Value Status Description Data Source(s ) Smoking 05/24/2021 12:00:00 AM EDT Former Smoker completed Former Smoker eCW1 ([facility]) Smoking 05/02/2021 12:00:00 AM EDT Former Smoker completed Former Smoker eCW1 ([facility]) Smoking 05/02/2021 12:00:00 AM EDT Former Smoker completed Former Smoker eCW1 ([facility]) Smoking 02/25/2021 12:00:00 AM EDT Former Smoker completed Former Smoker eCW1 ([facility]) Vital Signs ID Date Data Source UNK Name Value Range Interpretation Code Description Data Source(s) Body weight 97 [lb_av] 97 [lb_av] eCW1 ([facility]) Body height 63 [in_i] 63 [in_i] eCW1 ([facility]) Body mass index (BMI) [Ratio] 17.18 kg/m2 17.18 kg/m2 eCW1 ([facility]) Systolic blood pressure 104 mm[Hg] 104 mm[Hg] e CW1 ([facility]) Diastolic blood pressure 60 mm[Hg] 60 mm[Hg] eCW1 ([facility]) Body weight 96.4 [lb_av] 96.4 [lb_av] eCW1 ([facility]) Body height 63 [in_i] 63 [in_i] eCW1 ([facility]) Body mass index (BMI) [Ratio] 17.07 kg/m2 17.07 kg/m2 eCW1 ([facility]) Heart rate 80 /min 80 /min eCW1 ([facility]) Respiratory rate 18 /min 18 /min eCW1 ([facility]) Body temperature 98.9 [degF] 98.9 [degF] eCW1 ( [facility]) Systolic blood pressure 118 mm[Hg] 118 mm[Hg] e CW1 ([facility]) Diastolic blood pressure 72 mm[Hg] 72 mm[Hg] eCW1 ([facility]) Body mass index (BMI) [Ratio] 18.3 kg/m2 18.3 k g/m2 [facility] ([facility]) Systolic blood pressure 114 mm[Hg] 114 mm[Hg] M EDENT ([facility]) Diastolic blood pressure 70 mm[Hg] 70 mm[Hg] [facility] ([facility]) Heart rate 74 /min 74 /min [facility] ([facility]) Body height 61 [in_i] 61 [in_i] [facility] ([facility]) 5'1" Body weight 97.00 [lb_av] 97.00 [lb_av] [facility] ([facility]) Oxygen saturation in Arterial blood by Pulse oximetry 99 % 99 % [facility] ([facility]) Patient Treatment Plan of Care Planned Activity Planned Date Details Description Data Source (s) Azithromycin 250 MG Oral Tablet [Zithromax] 05/22/2021 12:00:00 AM EDT eCW1 ([facility]) Azithromycin 250 MG Oral Tablet [Zithromax] 05/22/2021 12:00:00 AM EDT eCW1 ([facility])
[2021-05-25] MEDS: NS 1,000 ML IV SCH (16:49)
[2021-05-25] MEDS: SUCRALFATE 1 GM TAB PO SCH ×2 (17:30→23:39)
[2021-05-25] MEDS ORDERED: PANTOPRAZOLE 40MG VIAL (C9113 PER 1) IV SCH (18:00)
--- NOTE | 2021-05-25 18:57 | ECGEPIP ---
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
[2021-05-26] VITALS: BP 118/58
[2021-05-26] MEDS: NS 1,000 ML IV SCH (00:20)
[2021-05-26 06:00] VITALS: BP 106/58
[2021-05-26 08:09] LABS: BASO % 0.3 % (0.0-1.0); EOS # 0.1 10^3/uL (0.0-0.5); EOS % 2.4 % (0.0-3.0); LYMPH # 1.3 10^3/uL (1.5-5.0); LYMPH % 45.1 % (24.0-44.0); MEAN CORPUSCULAR HEMOGLOBIN 30.4 pg (27.0-33.0); MEAN CORPUSCULAR HGB CONC 32.2 g/dl (32.0-36.5); MEAN CORPUSCULAR VOLUME 94.5 fl (80.0-96.0); MONO # 0.4 10^3/uL (0.0-0.8); MONO % 13.2 % (2.0-8.0); NEUTROPHILS # 1.1 10^3/uL (1.5-8.5); PLATELET COUNT, AUTOMATED 186 10^3/uL (150-450); RED BLOOD COUNT 3.81 10^6/uL (4.00-5.40); WHITE BLOOD COUNT 2.9 10^3/uL (4.0-10.0)
[2021-05-26 08:10] LABS: HEMOGLOBIN 11.6 g/dl (12.0-15.5)
[2021-05-26] MEDS: SUCRALFATE 1 GM TAB PO SCH ×2 (08:29→13:20)
[2021-05-26 08:38] LABS: ALBUMIN 2.9 GM/DL (3.2-5.2); ALT/SGPT 26 U/L (12-78); BILIRUBIN,TOTAL 0.3 MG/DL (0.2-1.0); BLOOD UREA NITROGEN 13 MG/DL (7-18); CARBON DIOXIDE LEVEL 21 MEQ/L (21-32); CHLORIDE LEVEL 111 MEQ/L (98-107); CREATININE FOR GFR 0.55 MG/DL (0.55-1.30); GLOMERULAR FILTRATION RATE > 60.0 (>45); GLUCOSE, FASTING 62 MG/DL (70-100); MAGNESIUM LEVEL 1.8 MG/DL (1.8-2.4); POTASSIUM SERUM 3.8 MEQ/L (3.5-5.1); SODIUM LEVEL 140 MEQ/L (136-145); TOTAL PROTEIN 5.8 GM/DL (6.4-8.2)
[2021-05-26 08:54] LABS: FERRITIN 281 NG/ML (8-252); IRON (FE) 75 UG/DL (50-170); PERCENT SATURATION 29.1 % (13.2-45.0); TOTAL IRON BINDING CAPACITY 258 UG/DL (250-450)
[2021-05-26] MEDS ORDERED: buPROPion **XL** TABLET 150MG (WELLBUTRIN XL) PO SCH (09:00)
[2021-05-26] MEDS ORDERED: ASCORBIC ACID 250 MG TAB PO SCH (09:00)
[2021-05-26] MEDS ORDERED: ZINC SULFATE 220 MG CAP PO SCH (09:00)
[2021-05-26] MEDS ORDERED: ACET1TAB55 PO (12:21)
[2021-05-26] MEDS ORDERED: CARA1TAB6 PO (12:21)
[2021-05-26] MEDS ORDERED: DEXI60CA2 PO (12:21)
[2021-05-26] MEDS ORDERED: ZOFR4TAB16 PO (12:21)
[2021-05-28 10:26] LABS: FOLATE > 24.0 NG/ML (>5.4); VITAMIN B12 LEVEL 937 PG/ML (247-911)
== END 2021-05-26 16:45 | disposition home or self-care (01) ==
LOC: M ED 10:54 → M ED INP 10:55 → M 4MAIN 05-26 00:07
PROVIDERS: ADMIT Family Medicine; ATTEND Family Medicine
DX: U07.1 COVID-19 (principal); K85.90 Acute pancreatitis without necrosis or infection, unspecified; K21.9 Gastro-esophageal reflux disease without esophagitis; F32.9 Major depressive disorder, single episode, unspecified; F41.9 Anxiety disorder, unspecified; E78.5 Hyperlipidemia, unspecified; Z79.899 Other long term (current) drug therapy; Z88.1 Allergy status to other antibiotic agents
CPT/HCPCS: 36415; 74177; 80048; 80053; 80076; 82550; 82553; 82607; 82728; 82746; 83550; 83690; 83735; 84484; 85025; 93005; 93041; 94760; 96361; 96374; 96375; 99285; C9113; Q9967

== ENCOUNTER → 2022-09-25 | Outpatient (REF) | payer MEDICARE, OTHER ==
[~2022-09-25] MED LIST changes: +ACET1TAB55 PO; +AZIT-12 PO; +D-50TAB PO; +FEXO-5 PO; +FLUTISP NARES; +VITA250T4 PO; +VITMTA PO; +ZINC220CA PO; +ZOFR4TAB16 PO
== END ==
LOC: M PLALAB 11:07
PROVIDERS: ATTEND Nurse Practitioner Family
DX: Z12.4 Encounter for screening for malignant neoplasm of cervix (principal)
CPT/HCPCS: 87624; G0123

== ENCOUNTER → 2022-09-25 | Outpatient (CLI) | payer MEDICARE, OTHER | LOC: M WHC 08:54 | PROVIDERS: ATTEND Nurse Practitioner Family | DX: Z12.31 Encounter for screening mammogram for malignant neoplasm of breast (principal) ==

== ENCOUNTER → 2023-05-15 | Outpatient (CLI) | payer MEDICARE, OTHER ==
[~2023-05-15] MED LIST changes: +FLUT50SP17 NARES; -FLUTISP NARES
[2023-05-15 11:33] LABS: HEMOGLOBIN A1c 5.2 % (4.0-6.0)
[2023-05-15 11:47] LABS: THYROID STIMULATING HORMONE 2.766 uIU/ML (0.55-4.78)
[2023-05-15 11:48] LABS: ALBUMIN 4.3 G/DL (3.2-5.2); ALKALINE PHOSPHATASE 94 U/L (46-116); ALT/SGPT 15 U/L (7.0-40); AST/SGOT 27 U/L (<34); BILIRUBIN,TOTAL 0.5 MG/DL (0.3-1.2); BLOOD UREA NITROGEN 20 MG/DL (9-23); CALCIUM LEVEL 9.6 MG/DL (8.3-10.6); CARBON DIOXIDE LEVEL 31 MMOL/L (20-31); CHLORIDE LEVEL 106 MMOL/L (98-107); CHOLESTEROL LEVEL 250 MG/DL (<200); CHOLESTEROL RISK RATIO 3.43 (<5); CREATININE FOR GFR 0.81 MG/DL (0.55-1.30); GLOMERULAR FILTRATION RATE > 60.0 (>45); GLUCOSE, FASTING 80 MG/DL (74-106); HDL CHOLESTEROL 72.8 MG/DL (>40); NON-HDL-C 177.2 MG/DL; POTASSIUM SERUM 4.3 MMOL/L (3.5-5.1); SODIUM LEVEL 142 MMOL/L (136-145); TRIGLYCERIDES LEVEL 71 MG/DL (<150)
[2023-05-15 11:49] LABS: TOTAL 25(OH) VITAMIN D 59.9 NG/ML (20.0-100.0)
== END ==
LOC: M WUC 08:03
PROVIDERS: ATTEND Nurse Practitioner Adult Health
DX: Z13.220 Encounter for screening for lipoid disorders (principal); Z83.3 Family history of diabetes mellitus; E55.9 Vitamin D deficiency, unspecified; Z13.29 Encounter for screening for other suspected endocrine disorder; R05.9 Cough, unspecified; F41.9 Anxiety disorder, unspecified; F32.A Depression, unspecified; M81.0 Age-related osteoporosis without current pathological fracture; K21.00 Gastro-esophageal reflux disease with esophagitis, without bleeding; M79.645 Pain in left finger(s); J30.2 Other seasonal allergic rhinitis

== ENCOUNTER → 2024-01-01 | Outpatient (CLI) | payer MEDICARE, OTHER ==
[~2024-01-01] MED LIST changes: -FLUT50SP17 NARES; +FLUTISP NARES; +VITA250T27 PO; -VITA250T4 PO
== END ==
LOC: M WHC 10:50
PROVIDERS: ATTEND Nurse Practitioner Family
DX: Z12.31 Encounter for screening mammogram for malignant neoplasm of breast (principal); R92.333 Mammographic heterogeneous density, bilateral breasts

== ENCOUNTER → 2024-11-03 | Outpatient (CLI) | payer MEDICARE, OTHER ==
[2024-11-03 13:44] LABS: HEMATOCRIT 40.1 % (36.0-47.0); HEMOGLOBIN 12.6 g/dl (12.0-15.5); MEAN CORPUSCULAR HEMOGLOBIN 29.8 pg (27.0-33.0); MEAN CORPUSCULAR HGB CONC 31.4 g/dl (32.0-36.5); MEAN CORPUSCULAR VOLUME 94.8 fl (80.0-96.0); PLATELET COUNT, AUTOMATED 294 10^3/uL (150-450); RED BLOOD COUNT 4.23 10^6/uL (4.00-5.40); WHITE BLOOD COUNT 4.6 10^3/uL (4.0-10.0)
[2024-11-03 13:57] LABS: HEMOGLOBIN A1c 4.9 % (4.0-6.0)
[2024-11-03 14:13] LABS: FERRITIN 76.4 NG/ML (7.3-270.7); FREE T4 1.26 NG/DL (0.89-1.76)
[2024-11-03 14:14] LABS: THYROID STIMULATING HORMONE 2.537 uIU/ML (0.55-4.78)
[2024-11-03 14:15] LABS: ALBUMIN 4.2 G/DL (3.2-5.2); ALKALINE PHOSPHATASE 57 U/L (35-104); ALT/SGPT 15 U/L (7.0-40); AST/SGOT 21 U/L (<34); BILIRUBIN,TOTAL 0.5 MG/DL (0.3-1.2); BLOOD UREA NITROGEN 16 MG/DL (9-23); CALCIUM LEVEL 9.5 MG/DL (8.3-10.6); CARBON DIOXIDE LEVEL 30 MMOL/L (20-31); CHLORIDE LEVEL 106 MMOL/L (98-107); CHOLESTEROL LEVEL 273 MG/DL (<200); CHOLESTEROL RISK RATIO 3.96 (<5); CREATININE FOR GFR 0.82 MG/DL (0.55-1.30); GLOMERULAR FILTRATION RATE > 60.0 (>45); GLUCOSE, FASTING 83 MG/DL (74-106); HDL CHOLESTEROL 68.8 MG/DL (>40); LDL CHOLESTEROL 183.4 MG/DL (<100); NON-HDL-C 204.2 MG/DL; SODIUM LEVEL 143 MMOL/L (136-145); TOTAL 25(OH) VITAMIN D 39.2 NG/ML (20.0-100.0); TOTAL PROTEIN 7.1 G/DL (5.7-8.2); TRIGLYCERIDES LEVEL 104 MG/DL (<150)
== END ==
LOC: M WUC 08:36
PROVIDERS: ATTEND Nurse Practitioner Adult Health
DX: Z00.00 Encounter for general adult medical examination without abnormal findings (principal); Z83.3 Family history of diabetes mellitus; Z13.220 Encounter for screening for lipoid disorders; E55.9 Vitamin D deficiency, unspecified; Z79.899 Other long term (current) drug therapy